=== PATIENT | male | born 1950 | race American Indian/Alaskan Native ===

== ENCOUNTER 2019-01-27 14:01 | Inpatient (IN) | payer MEDICARE, OTHER ==
[2019-01-27 14:24] LABS: Basophils % (Auto) 0.6 % (0.0-1.8); Eosinophils % (Auto) 0.5 % (0.0-4.3); Hematocrit 44.2 % (35.5-45.6); Hemoglobin 15.2 gm/dl (11.8-15.2); Lymphocytes # (Auto) 1.5 K/mm3 (1.2-5.4); Lymphocytes % (Auto) 23.8 % (13.4-35.0); Mean Corpuscular HGB Conc 34 % (32-34); Mean Corpuscular Volume 95 fl (84-94); Monocytes # (Auto) 0.5 K/mm3 (0.0-0.8); Monocytes % (Auto) 8.1 % (0.0-7.3); Platelet Count 252 K/mm3 (140-440); Red Blood Count 4.68 M/mm3 (3.65-5.03); Red Cell Distribution Width 15.8 % (13.2-15.2)
--- NOTE | 2019-01-27 14:27 | Cat Scan Report ---
PROCEDURE: CT HEAD/BRAIN WO CON TECHNIQUE: CT examination of the head without IV contrast HISTORY: neuro deficits <6hrs or sx present upon awakening COMPARISONS: None FINDINGS: Nonunion mid left zygomatic arch may be developmental variation or old trauma. Slight mucosal thickening sphenoid sinuses. Cerebrovascular atherosclerotic calcification is present in the skull base arteries. Small chronic appearing lacunar infarcts in the left thalamus and posterior right internal capsule. No acute air-fluid level visualized in the included air-filled sinuses. Bone windows demonstrate no acute fracture. There is ventricular and sulcal prominence compatible with global cerebrocortical atrophy. The brain contains no mass, mass effect, hemorrhage, or acute infarct. There is no extra-axial intracranial bleed, brain bleed, or midline shift. IMPRESSION: No acute CVA, intracranial bleed, or brain mass Small chronic appearing lacunar infarcts in left thalamus and posterior right internal capsule This document is electronically signed by Kvng Burton MD., January 27 2019 02:25:22 PM ET
[2019-01-27] MEDS ORDERED: ACTIVASE ONE (14:30)
[2019-01-27] MEDS ORDERED: NACL 0.9% IV ONE (14:34)
[2019-01-27] MEDS ORDERED: ACTIVASE IV ONE ×2 (14:34)
[2019-01-27 14:37] LABS: INR 0.97 (0.87-1.13)
[2019-01-27 14:39] LABS: BUN/Creatinine Ratio 12; Blood Urea Nitrogen 11 mg/dL (9-20); Calcium 8.4 mg/dL (8.4-10.2); Hemolysis Index 7
--- NOTE | 2019-01-27 14:59 | Emergency Department Report ---
ED Neuro Deficit HPI - General Chief Complaint: Neuro Symptoms/Deficit Stated Complaint: POSS CVA Time Seen by Provider: 01/27/19 14:28 Source: patient, EMS Mode of arrival: Stretcher Limitations: No Limitations - History of Present Illness Initial Comments: 68-year-old male the past medical history of alcohol abuse presents with complaints of strokelike symptoms that started during a at 1 PM. Patient fell and there was noted to have right-sided weakness, right-sided facial droop, and slurred speech. No pain reported. PMD: Ba - Related Data Allergies/Adverse Reactions: Allergies Allergy/AdvReac Type Severity Reaction Status Date / Time No Known Allergies Allergy Verified 01/27/19 15:17 ED Review of Systems ROS: Stated complaint: POSS CVA Other details as noted in HPI Comment: All other systems reviewed and negative ED Past Medical Hx - Past Medical History Previous Medical History?: No Hx Hypertension: No Hx CVA: No Hx Heart Attack/AMI: No Hx Congestive Heart Failure: No Hx Diabetes: Yes Hx Deep Vein Thrombosis: No Hx Pulmonary Embolism: No Hx GERD: No Hx Liver Disease: No Hx Renal Disease: Yes (Stage 2) Hx of Cancer: No Hx Sickle Cell Disease: No Hx Arthritis: No Hx Headaches / Migraines: No Hx Seizures: No Hx Kidney Stones: No Hx Psychiatric Treatment: No Hx Asthma: No Hx COPD: No Hx Tuberculosis: No Hx Dementia: No Hx HIV: No Additional medical history: hypotension, hypothyroidism - Surgical History Past Surgical History?: No Hx Coronary Stent: No Hx Open Heart Surgery: No Hx Pacemaker: No Hx Internal Defibrillator: No Hx Cholecystectomy: No Hx Appendectomy: No Hx Breast Surgery: No - Social History Smoking Status: Never Smoker Substance Use Type: None ED Neuro Physical Exam - General Limitations: Physical Limitation Suspected Stroke: Yes - NIHSS Assessment Interval: Baseline 1a. Level of Consciousness: alert/keenly responsive 1b. LOC Questions: answers both correctly 1c. LOC Commands: performs tasks correctly 2. Best Gaze: forced deviation 3. Visual: complete hemianopia 4. Facial Palsy: partial paralysis 5b. Motor Arm Right: drift 5a. Motor Arm Left: no drift 6a. Motor Leg Left: no drift 6b. Motor Leg Right: drift 7. Limb Ataxia: absent 8. Sensory: normal 9. Best Language: mild/moderate aphasia 10. Dysarthria: mild/moderate dysarthria 11. Extinction/Inattention: no abnormality Total Score: 10 Stroke Severity: Moderate Stroke - Other Other exam information: General: No limitations, patient is alert in no acute distress Head exam: Atraumatic, normocephalic Eyes exam: Normal appearance, FARIHA ENT: Moist mucous membrane, normal oropharynx Neck exam: Normal inspection, full range of motion, no meningismus nontender Respiratory exam: Clear to auscultation bilateral, no wheezes, rales, crackles Cardiovascular: Normal rate and rhythm, normal heart sounds Abdomen: Soft, nondistended, and nontender, with normal bowel sounds, no rebound, or guarding Extremity: Full range of motion normal inspection no deformity Back: Normal Inspection, full range of motion, no tenderness Neurologic: Alert, see NIHSS Psychiatric: normal affect, normal mood Skin: Warm, dry, intact ED Course Vital Signs 01/27/19 01/27/19 01/27/19 14:40 14:50 14:53 Temperature 97.7 F Pulse Rate 73 71 82 Respiratory 25 H 20 Rate Blood Pressure 122/68 175/85 175/85 Blood Pressure 185/95 175/85 [Left] O2 Sat by Pulse 98 96 Oximetry 01/27/19 01/27/19 01/27/19 15:15 15:23 15:26 Temperature Pulse Rate 76 72 76 Respiratory 18 18 Rate Blood Pressure 182/85 Blood Pressure 183/81 171/86 [Left] O2 Sat by Pulse 97 97 Oximetry 01/27/19 01/27/19 01/27/19 15:40 15:45 16:01 Temperature Pulse Rate 67 66 67 Respiratory 23 22 22 Rate Blood Pressure 181/69 186/83 Blood Pressure [Left] O2 Sat by Pulse 96 92 96 Oximetry 01/27/19 01/27/19 01/27/19 16:15 16:31 16:45 Temperature Pulse Rate 65 67 73 Respiratory 15 13 27 H Rate Blood Pressure 187/79 191/91 181/69 Blood Pressure [Left] O2 Sat by Pulse 96 98 Oximetry 01/27/19 01/27/19 01/27/19 17:00 17:15 17:30 Temperature Pulse Rate 68 67 68 Respiratory 22 11 L 16 Rate Blood Pressure 189/99 171/88 203/100 Blood Pressure [Left] O2 Sat by Pulse 92 90 90 Oximetry 01/27/19 01/27/19 01/27/19 17:45 18:00 18:06 Temperature Pulse Rate 68 65 Respiratory 20 22 20 Rate Blood Pressure 198/92 188/88 Blood Pressure [Left] O2 Sat by Pulse 91 89 98 Oximetry 01/27/19 01/27/19 01/27/19 18:15 18:30 18:45 Temperature Pulse Rate 72 68 70 Respiratory 18 16 22 Rate Blood Pressure 204/110 202/108 205/127 Blood Pressure [Left] O2 Sat by Pulse 92 91 91 Oximetry 01/27/19 01/27/19 19:00 19:15 Temperature Pulse Rate 67 68 Respiratory 22 18 Rate Blood Pressure 211/106 196/80 Blood Pressure [Left] O2 Sat by Pulse 90 95 Oximetry - Reevaluation(s) Reevaluation #1: 01/27/19 16:30 pt able to communicate better after tpa - Consultations Consultation #1: 01/27/19 16:57 Pt was evaluated by tele-neuro upon arrival, + TPA candidate, Not a candidate for intervention based on cta, refer to Dr. Rascon's note 01/27/19 17:07 Case d/w Dr Mckee with [facility] approved admission to this hospital - Lab Data Result diagrams: 01/27/19 14:14 01/27/19 14:14 Lab Results 01/27/19 01/27/19 01/27/19 Range/Units 14:14 14:14 14:14 WBC 6.2 (4.5-11.0) K/mm3 RBC 4.68 (3.65-5.03) M/mm3 Hgb 15.2 (11.8-15.2) gm/dl Hct 44.2 (35.5-45.6) % MCV 95 H (84-94) fl MCH 33 H (28-32) pg MCHC 34 (32-34) % RDW 15.8 H (13.2-15.2) % Plt Count 252 (140-440) K/mm3 Lymph % (Auto) 23.8 (13.4-35.0) % Carson % (Auto) 8.1 H (0.0-7.3) % Eos % (Auto) 0.5 (0.0-4.3) % Baso % (Auto) 0.6 (0.0-1.8) % Lymph # 1.5 (1.2-5.4) K/mm3 Carson # 0.5 (0.0-0.8) K/mm3 Eos # 0.0 (0.0-0.4) K/mm3 Baso # 0.0 (0.0-0.1) K/mm3 Seg Neutrophils % 67.0 (40.0-70.0) % Seg Neutrophils # 4.2 (1.8-7.7) K/mm3 PT 13.5 (12.2-14.9) Sec. INR 0.97 (0.87-1.13) APTT 24.0 L (24.2-36.6) Sec. Thrombin Time (15.1-19.6) Sec. Sodium 143 (137-145) mmol/L Potassium 4.0 (3.6-5.0) mmol/L Chloride 106.4 (98-107) mmol/L Carbon Dioxide 22 (22-30) mmol/L Anion Gap 19 mmol/L BUN 11 (9-20) mg/dL Creatinine 0.9 (0.8-1.5) mg/dL Estimated GFR > 60 ml/min BUN/Creatinine Ratio 12 % Glucose 120 H (75-100) mg/dL Calcium 8.4 (8.4-10.2) mg/dL Magnesium (1.7-2.3) mg/dL Troponin T < 0.010 (0.00-0.029) ng/mL 01/27/19 01/27/19 Range/Units 14:14 14:14 WBC (4.5-11.0) K/mm3 RBC (3.65-5.03) M/mm3 Hgb (11.8-15.2) gm/dl Hct (35.5-45.6) % MCV (84-94) fl MCH (28-32) pg MCHC (32-34) % RDW (13.2-15.2) % Plt Count (140-440) K/mm3 Lymph % (Auto) (13.4-35.0) % Carson % (Auto) (0.0-7.3) % Eos % (Auto) (0.0-4.3) % Baso % (Auto) (0.0-1.8) % Lymph # (1.2-5.4) K/mm3 Carson # (0.0-0.8) K/mm3 Eos # (0.0-0.4) K/mm3 Baso # (0.0-0.1) K/mm3 Seg Neutrophils % (40.0-70.0) % Seg Neutrophils # (1.8-7.7) K/mm3 PT (12.2-14.9) Sec. INR (0.87-1.13) APTT (24.2-36.6) Sec. Thrombin Time 16.4 (15.1-19.6) Sec. Sodium (137-145) mmol/L Potassium (3.6-5.0) mmol/L Chloride (98-107) mmol/L Carbon Dioxide (22-30) mmol/L Anion Gap mmol/L BUN (9-20) mg/dL Creatinine (0.8-1.5) mg/dL Estimated GFR ml/min BUN/Creatinine Ratio % Glucose (75-100) mg/dL Calcium (8.4-10.2) mg/dL Magnesium 2.10 (1.7-2.3) mg/dL Troponin T (0.00-0.029) ng/mL - EKG Data -: EKG Interpreted by Md EKG shows normal: sinus rhythm (78), axis (qrs 9), QRS complexes (qrs 894), ST-T waves (no stemi/t wave inv) - Radiology Data Radiology results: report reviewed PROCEDURE: CT HEAD/BRAIN WO CON TECHNIQUE: CT examination of the head without IV contrast HISTORY: neuro deficits <6hrs or sx present upon awakening COMPARISONS: None FINDINGS: Nonunion mid left zygomatic arch may be developmental variation or old trauma. Slight mucosal thickening sphenoid sinuses. Cerebrovascular atherosclerotic calcification is present in the skull base arteries. Small chronic appearing lacunar infarcts in the left thalamus and posterior right internal capsule. No acute air-fluid level visualized in the included air-filled sinuses. Bone windows demonstrate no acute fracture. There is ventricular and sulcal prominence compatible with global cerebrocortical atrophy. The brain contains no mass, mass effect, hemorrhage, or acute infarct. There is no extra-axial intracranial bleed, brain bleed, or midline shift. IMPRESSION: No acute CVA, intracranial bleed, or brain mass Small chronic appearing lacunar infarcts in left thalamus and posterior right internal capsule PROCEDURE: CT ANGIO HEAD, CT ANGIO NECK TECHNIQUE: Computerized tomographic angiography of the head and neck was performed after the IV injection of iodinated nonionic contrast including image processing. The image data was postprocessed using 2-dimensional multiplanar reformatted (MPR) and 3- dimensional (MIP and/or volume rendered) techniques. Coronal and sagittal reconstructed imaging provided.. The image data was postprocessed using 2- dimensional multiplanar reformatted (MPR) and 3-dimensional (MIP and/or volume rendered) techniques. Coronal and sagittal reconstructed imaging provided. CT DOSE LENGTH PRODUCT: 812.62 mGy-cm. HISTORY: left hemispheric syndrome COMPARISONS: CT head January 27, 2019. FINDINGS: HEAD: Carotid Siphon: Moderate disease with 35-45% narrowing at both cavernous carotids. Vessels are patent with contrast. Anterior Cerebral: Unremarkable. Middle Cerebral: Unremarkable. Posterior Cerebral: Unremarkable. Basilar: Unremarkable. Intracranial Vertebral Arteries: Mild disease on the right. Left is unremarkable. There is no aneurysm, dissection, vascular malformation, or significant vascular stenosis. There is no evidence for vasculitis. NECK: Note: Assessment of carotid artery stenosis is based on measurement of the distal internal carotid artery diameter as the denominator for stenosis calculations and the [place] Symptomatic Carotid Endarterectomy Trial (NASCET) stenosis criteria. RIGHT CAROTID: Origin: Unremarkable. Common: Unremarkable. Bifurcation: Mild to moderate disease. Inter nal: Mild disease. External: Unremarkable. There is no aneurysm, dissection, vascular malformation, or significant vascular stenosis. There is no evidence for vasculitis. LEFT CAROTID: Origin: Unremarkable. Common: Unremarkable. Bifurcation: Mild to moderate disease. Internal: Mild disease. External: Unremarkable. There is no aneurysm, dissection, vascular malformation, or significant vascular stenosis. There is no evidence for vasculitis. EXTRACRANIAL VERTEBRALS: Unremarkable. Equally dominant. There is no aneurysm, dissection, vascular malformation, or significant vascular stenosis. There is no evidence for vasculitis. OTHER: Partially imaged thoracic aorta does not demonstrate any aneurysm or dissection. Major branch arteries are are patent. Mild to moderate aortic atherosclerotic disease. Mild disease at the origin of the major aortic branches. IMPRESSION: * 35-40% narrowing of both cavernous carotids. * Otherwise unremarkable CTA of the head and neck - Medical Decision Making + acute cva received tpa ba pt with approval to admit here neuro sx improveing - Differential Diagnosis ischemic stroke, intracerebral hemorrhage, encephalopathy - Thrombolytic Inclusion/Exclusion Thrombolytic Inclusion Criteria: Ischemic Stroke Onset< 3h, NIH Stroke Scale D eficit, Negative CT Scan for ICH, Age 18 or Older, Glucose of 50-400mg/dl Critical Care Time: Yes Critical care time in (mins) excluding proc time.: 35 Critical care attestation.: If time is entered above; I have spent that time in minutes in the direct care of this critically ill patient, excluding procedure time. ED Disposition Clinical Impression: Alcohol abuse, daily use Stroke (cerebrum) Qualifiers: Precerebral and cerebral artery: middle cerebral artery Laterality of affected vessel: left HTN (hypertension) Qualifiers: Hypertension type: essential hypertension Qualified Code(s): I10 - Essential (primary) hypertension Disposition: DC09 OP ADMIT IP TO THIS HOSP Is pt being admited?: Yes Condition: Stable Time of Disposition: 17:09 (DR Brown /hosp)
--- NOTE | 2019-01-27 14:59 | Emergency Department Report ---
ED Neuro Deficit HPI - General Chief Complaint: Neuro Symptoms/Deficit Stated Complaint: POSS CVA Time Seen by Provider: 01/27/19 14:28 Source: patient, EMS Mode of arrival: Stretcher Limitations: No Limitations - History of Present Illness Initial Comments: [facility] Tele[facility]urology Consult Services Impression: Stroke. Left hemispheric Advanced imaging ordered to r/o lvo Differential Diagnosis: 1. Cardioembolic stroke 2. Small vessel disease/lacune 3. Thromboembolic, pwteop-so-wkikqy mechanism 4. Hypercoagulable state-related infarct 5. Transient ischemic attack 6. Thrombotic mechanism, large artery disease Comments: Door time: 1402 [employer] contacted: [phone] [employer] at bedside: 1402 Verbal tpa order: 1429; however, had to wait for labs given patient drinks etoh every day Needle time: 1449 (delay from waiting for labs) Verbal Consent to tPA: I discussed the contraindications with the patient/family. The patient denies any history of severe head trauma within the last 3 months, prior intracranial hemorrhage, structural gastrointestinal malignancy, intra- axial neoplasm, unsecured aneurysm greater than 10mm, intracranial or intraspinal surgery within the past 3 months, recent gastrointestinal or urinary tract hemorrhage within the previous 21 days, symptoms suggestive of subarachnoid hemorrhage, infective endocarditis, active internal bleeding with the exception of certain types of vaginal bleeding, or known or suspected aortic arch dissection. The patient does not have an INR greater than 1.7, PT greater than 15 seconds, or a pTT greater than 40 seconds, or platelet count less than 100,[address] does not show extensive regions hypodensity (multilobar infarct) and there is no evidence of acute hemorrhage. The patient is not currently on IV antiplatelet agents, therapeutic dose ofLMWH, or has used a direct thrombin inhibitor or direct factor Xa inhibitor. I have explained to the patient/family/guardian the nature of the patients condition, the use of tPA fibrinolytic agent, and the benefits to be reasonably expected compared with alternative approaches. I have discussed the likelihood of major risks or complications of this procedure including (if applicable) but not limited to loss of limb function, brain damage, paralysis, hemorrhage, infection, complications from transfusion of blood components, drug reactions, blood clots and loss of life. I have also indicated that with any procedure there is always the possibility of an unexpected complication. I have explained the risks which include: 1. , Stroke or permanent neurologic injury (paralysis, coma, etc) 2. Worsening of stroke symptoms from swelling or bleeding in the brain 3. Bleeding in other parts of the body 4. Need for blood transfusions to replace blood or clotting factors 5. Allergic reaction to medications 6. Other unexpected complications All questions were answered and the patient/family/guardian express understanding of the treatment plan and consent to the procedure. Our recommendations are outlined below. We will be seeing the patient back in follow up as noted. Recommendations: IV tPA dose = 90mg; 111.3kg Routine post tPA monitoring including neuro checks and blood pressure control during/after treatment Monitor blood pressure Check blood pressure and NIHSS every 15 min for 2 h, then every 30 min for 6 h, and finally every hour for 16 h Systolic greater than 180 OR diastolic greater than 105: Option 1: Labetalol 10 mg IV for 1 - 2 min May repeat or double labetalol every 10 min to maximum dose of 300 mg, or give initial labetalol dose, then start labetalol drip at 2 - 8 mg/min. Option 2: Nicardipine 5 mg/h IV infusion as initial dose and titrate to desired effect by increasing 2.5 mg/h every 5 min to maximum of 15 mg/h; If blood pressure is not controlled by labetolol or nicardipine, consider sodium nitroprusside. Cta head and neck ordered. If no lvo, okay to admit to icu with below recommendations Admission to ICU CT brain 24 hours post tPA NPO until swallowing screen performed and passed No antiplatelet agents or anticoagulants (including heparin for DVT prophylaxis) in first 24 hours No Adams catheter, nasogastric tube, arterial catheter or central venous catheter for 24 hr, unless absolutely necessary Telemetry Inpatient Neurology Consultation Stroke evaluation as per inpatient neurology recommendations Discussed with ED MD CC right sided weakness History of Present Illness Patient is a 68 year old man who was brought to the hospital for right sided weakness and difficulty falling. Onset of symptoms at 1300, family witnessed this at a , he had problems walking. Then they noticed he could not speak well. No anticoagulants, drinks high volumes of etoh daily, does not go to the md Medical Decision Making: - Extensive number of diagnosis or management options are considered above. - Extensive amount of complex data reviewed. - High risk of complication and/or morbidity or mortality are associated with differential diagnostic considerations above. - There may be Uncertain outcome and increased probability of prolonged functional impairment or high probability of severe prolonged functional impairment associated with some of these differential diagnosis. Medical Data Reviewed: 1.Data reviewed include clinical labs, radiology, Medical Tests; 2.Tests results discussed w/performing or interpreting physician; 3.Obtaining/reviewing old medical records; 4.Obtaining case history from another source; 5.Independent review of image, tracing or specimen. Patient/family was informed the Neurology Consult would happen via telehealth ( remote video) and consented to receiving care in this manner. - Related Data Allergies/Adverse Reactions: Allergies Allergy/AdvReac Type Severity Reaction Status Date / Time Penicillins Allergy Angioedema Verified 01/27/19 14:42 vancomycin Allergy Itching Verified 01/27/19 14:42 vortioxetine Allergy Unknown Verified 01/27/19 14:42 [From Trintellix] ziprasidone [From Geodon] Allergy Angioedema Verified 01/27/19 14:42 ED Review of Systems ROS: Stated complaint: POSS CVA Other details as noted in HPI ED Past Medical Hx - Past Medical History Previous Medical History?: No Hx Hypertension: No Hx CVA: No Hx Heart Attack/AMI: No Hx Congestive Heart Failure: No Hx Diabetes: Yes Hx Deep Vein Thrombosis: No Hx Pulmonary Embolism: No Hx GERD: No Hx Liver Disease: No Hx Renal Disease: Yes (Stage 2) Hx of Cancer: No Hx Sickle Cell Disease: No Hx Arthritis: No Hx Headaches / Migraines: No Hx Seizures: No Hx Kidney Stones: No Hx Psychiatric Treatment: No Hx Asthma: No Hx COPD: No Hx Tuberculosis: No Hx Dementia: No Hx HIV: No Additional medical history: hypotension, hypothyroidism - Surgical History Past Surgical History?: No Hx Coronary Stent: No Hx Open Heart Surgery: No Hx Pacemaker: No Hx Internal Defibrillator: No Hx Cholecystectomy: No Hx Appendectomy: No Hx Breast Surgery: No - Social History Smoking Status: Never Smoker Substance Use Type: None ED Neuro Physical Exam - General Limitations: No Limitations Suspected Stroke: Yes - NIHSS Assessment Interval: Baseline 1a. Level of Consciousness: alert/keenly responsive 1b. LOC Questions: answers both correctly 1c. LOC Commands: performs tasks correctly 2. Best Gaze: forced deviation 3. Visual: complete hemianopia 4. Facial Palsy: partial paralysis 5b. Motor Arm Right: drift 5a. Motor Arm Left: no drift 6a. Motor Leg Left: no drift 6b. Motor Leg Right: drift 7. Limb Ataxia: absent 8. Sensory: normal 9. Best Language: mild/moderate aphasia 10. Dysarthria: mild/moderate dysarthria 11. Extinction/Inattention: no abnormality Total Score: 10 Stroke Severity: Moderate Stroke ED Course Vital Signs 01/27/19 01/27/19 14:40 14:42 Temperature 97.7 F 98.3 F Pulse Rate 76 93 H Respiratory 25 H 16 Rate Blood Pressure 122/68 97/64 Blood Pressure 122/68 [Left] O2 Sat by Pulse 98 97 Oximetry - Lab Data Result diagrams: 01/27/19 14:14 01/27/19 14:14 Lab Results 01/27/19 01/27/19 01/27/19 Range/Units 14:14 14:14 14:14 WBC 6.2 (4.5-11.0) K/mm3 RBC 4.68 (3.65-5.03) M/mm3 Hgb 15.2 (11.8-15.2) gm/dl Hct 44.2 (35.5-45.6) % MCV 95 H (84-94) fl MCH 33 H (28-32) pg MCHC 34 (32-34) % RDW 15.8 H (13.2-15.2) % Plt Count 252 (140-440) K/mm3 Lymph % (Auto) 23.8 (13.4-35.0) % Rich % (Auto) 8.1 H (0.0-7.3) % Eos % (Auto) 0.5 (0.0-4.3) % Baso % (Auto) 0.6 (0.0-1.8) % Lymph # 1.5 (1.2-5.4) K/mm3 Rich # 0.5 (0.0-0.8) K/mm3 Eos # 0.0 (0.0-0.4) K/mm3 Baso # 0.0 (0.0-0.1) K/mm3 Seg Neutrophils % 67.0 (40.0-70.0) % Seg Neutrophils # 4.2 (1.8-7.7) K/mm3 PT 13.5 (12.2-14.9) Sec. INR 0.97 (0.87-1.13) APTT 24.0 L (24.2-36.6) Sec. Thrombin Time (15.1-19.6) Sec. Sodium 143 (137-145) mmol/L Potassium 4.0 (3.6-5.0) mmol/L Chloride 106.4 (98-107) mmol/L Carbon Dioxide 22 (22-30) mmol/L Anion Gap 19 mmol/L BUN 11 (9-20) mg/dL Creatinine 0.9 (0.8-1.5) mg/dL Estimated GFR > 60 ml/min BUN/Creatinine Ratio 12 % Glucose 120 H (75-100) mg/dL Calcium 8.4 (8.4-10.2) mg/dL Troponin T < 0.010 (0.00-0.029) ng/mL 01/27/19 Range/Units 14:14 WBC (4.5-11.0) K/mm3 RBC (3.65-5.03) M/mm3 Hgb (11.8-15.2) gm/dl Hct (35.5-45.6) % MCV (84-94) fl MCH (28-32) pg MCHC (32-34) % RDW (13.2-15.2) % Plt Count (140-440) K/mm3 Lymph % (Auto) (13.4-35.0) % Rich % (Auto) (0.0-7.3) % Eos % (Auto) (0.0-4.3) % Baso % (Auto) (0.0-1.8) % Lymph # (1.2-5.4) K/mm3 Rich # (0.0-0.8) K/mm3 Eos # (0.0-0.4) K/mm3 Baso # (0.0-0.1) K/mm3 Seg Neutrophils % (40.0-70.0) % Seg Neutrophils # (1.8-7.7) K/mm3 PT (12.2-14.9) Sec. INR (0.87-1.13) APTT (24.2-36.6) Sec. Thrombin Time 16.4 (15.1-19.6) Sec. Sodium (137-145) mmol/L Potassium (3.6-5.0) mmol/L Chloride (98-107) mmol/L Carbon Dioxide (22-30) mmol/L Anion Gap mmol/L BUN (9-20) mg/dL Creatinine (0.8-1.5) mg/dL Estimated GFR ml/min BUN/Creatinine Ratio % Glucose (75-100) mg/dL Calcium (8.4-10.2) mg/dL Troponin T (0.00-0.029) ng/mL Critical care attestation.: If time is entered above; I have spent that time in minutes in the direct care of this critically ill patient, excluding procedure time. ED Disposition Clinical Impression: Stroke (cerebrum) Disposition: 09 OP ADMIT IP TO THIS HOSP Is pt being admited?: Yes Condition: Stable Referrals: PRIMARY CARE, [Primary Care Provider] - 3-5 Days
[2019-01-27] MEDS ORDERED: NORMODYNE IV ONE (15:20)
--- NOTE | 2019-01-27 16:07 | Cat Scan Report ---
PROCEDURE: CT ANGIO HEAD, CT ANGIO NECK TECHNIQUE: Computerized tomographic angiography of the head and neck was performed after the IV inje ction of iodinated nonionic contrast including image processing. The image data was postprocessed usi ng 2-dimensional multiplanar reformatted (MPR) and 3-dimensional (MIP and/or volume rendered) [facility] ues. Coronal and sagittal reconstructed imaging provided.. The image data was postprocessed using 2-d imensional multiplanar reformatted (MPR) and 3-dimensional (MIP and/or volume rendered) techniques. C oronal and sagittal reconstructed imaging provided. CT DOSE LENGTH PRODUCT: 812.62 mGy-cm. HISTORY: left hemispheric syndrome COMPARISONS: CT head January 27, 2019. FINDINGS: HEAD: Carotid Siphon: Moderate disease with 35-45% narrowing at both cavernous carotids. Vessels are patent with contrast. Anterior Cerebral: Unremarkable. Middle Cerebral: Unremarkable. Posterior Cerebral: Unremarkable. Basilar: Unremarkable. Intracranial Vertebral Arteries: Mild disease on the right. Left is unremarkable. There is no aneurysm, dissection, vascular malformation, or significant vascular stenosis. There is n o evidence for vasculitis. NECK: Note: Assessment of carotid artery stenosis is based on measurement of the distal internal carotid a rtery diameter as the denominator for stenosis calculations and the [place] Symptomatic Caroti d Endarterectomy Trial (NASCET) stenosis criteria. RIGHT CAROTID: Origin: Unremarkable. Common: Unremarkable. Bifurcation: Mild to moderate disease. Internal: Mild disease. External: Unremarkable. There is no aneurysm, dissection, vascular malformation, or significant vascular stenosis. There is n o evidence for vasculitis. LEFT CAROTID: Origin: Unremarkable. Common: Unremarkable. Bifurcation: Mild to moderate disease. Internal: Mild disease. External: Unremarkable. There is no aneurysm, dissection, vascular malformation, or significant vascular stenosis. There is n o evidence for vasculitis. EXTRACRANIAL VERTEBRALS: Unremarkable. Equally dominant. There is no aneurysm, dissection, vascular malformation, or significant vascular stenosis. There is n o evidence for vasculitis. OTHER: Partially imaged thoracic aorta does not demonstrate any aneurysm or dissection. Major branch arterie s are are patent. Mild to moderate aortic atherosclerotic disease. Mild disease at the origin of the major aortic branches. IMPRESSION: * 35-40% narrowing of both cavernous carotids. * Otherwise unremarkable CTA of the head and neck. This document is electronically signed by Lavell Whitlock MD., January 27 2019 04:05:46 PM ET
[2019-01-27] MEDS ORDERED: SODIUM CHLORIDE FLUSH SYRINGE 10 ML IV PRN (17:08)
[2019-01-27] MEDS ORDERED: ZOFRAN IV PRN (17:08)
[2019-01-27] MEDS ORDERED: TYLENOL PO PRN (17:08)
[2019-01-27] MEDS ORDERED: PROVENTIL IH PRN (17:08)
[2019-01-27] MEDS ORDERED: MILK OF MAGNESIA PO PRN (17:08)
[2019-01-27] MEDS ORDERED: PHENERGAN PR PRN (17:08)
[2019-01-27] MEDS ORDERED: DULCOLAX PR PRN (17:08)
[2019-01-27] MEDS ORDERED: REGLAN PO PRN (17:08)
--- NOTE | 2019-01-27 17:08 | History and Physical Report ---
History of Present Illness Chief complaint: I felt weak History of present illness: 68 YO Male with Obesity, Hypothyroidism, DM, ETOH Dependence presents to ED for evaluation. Pt states that he was in his usual state of health until 1300hrs. Pt states that he experienced sudden onset right arm and leg weakness, as well as right sided facial droop, and slurred speech. EMS notified and upon arrival the patient was found to have neurologic deficit. A code stroke was called and the patient transported to [facility]. Pt seen and evaluated in ED and found to have symptoms consistent with CVA. Pt admitted to telemetry, and initiated on CVA protocol. Teleneurology consulted. Pt found to be within therapeutic window. Pt treated with TPA. Pt admitted to ICU and initiated on CVA protocol. Pt also initiated on ETOH withdrawl protocol. Neurology consulted in ED. Pt denies fever, chills, CP, Palpitations, NVD, Trauma, BRBPR, Unintentional weight loss, night sweats, or bone pain. Past History Past Medical History: diabetes, hypothyroidism, other (obesity\) Past Surgical History: No surgical history, Other (reviewed) Social history: , lives with family. denies: smoking, alcohol abuse, IV drug use Family history: diabetes, hypertension Medications and Allergies Allergies Allergy/AdvReac Type Severity Reaction Status Date / Time No Known Allergies Allergy Verified 01/27/19 15:17 Review of Systems Constitutional: no weight loss, no weight gain, no fever, no chills Ears, nose, mouth and throat: no ear pain, no ear discharge, no tinnitis, no decreased hearing, no nose pain, no nasal congestion Cardiovascular: no chest pain, no orthopnea, no palpitations, no rapid/irregular heart beat, no edema, no syncope Respiratory: no cough, no cough with sputum, no excessive sputum, no hemoptysis, no shortness of breath Gastrointestinal: no nausea, no vomiting, no diarrhea, no constipation Genitourinary Male: no dysuria, no hematuria, no flank pain, no discharge, no urinary frequency, no urinary hesitancy Rectal: no pain, no incontinence, no bleeding Musculoskeletal: no neck stiffness, no neck pain, no shooting arm pain, no arm numbness/tingling, no low back pain Integumentary: no rash, no pruritis, no redness, no sores, no wounds Neurological: paralysis, weakness, numbness, lack of coordination, change in speech, change in mentation, balance difficulties, gait dysfunction, motor disturbance, no head injury, no transient paralysis, no parathesias Psychiatric: no anxiety, no memory loss, no change in sleep habits, no sleep disturbances, no insomnia, no change in appetite Endocrine: no cold intolerance, no heat intolerance, no polyphagia, no excessive thirst, no polydipsia, no polyuria, no nocturia Hematologic/Lymphatic: no easy bruising, no easy bleeding, no lymphadenopathy, no lymphedema Allergic/Immunologic: no urticaria, no allergic rhinitis, no wheezing, no angioe lilly Exam - Constitutional Vitals: Temp Pulse Resp BP Pulse Ox 97.7 F 66 22 181/69 92 01/27/19 14:40 01/27/19 15:45 01/27/19 15:45 01/27/19 15:45 01/27/19 15:45 General appearance: Present: mild distress - EENT Eyes: Present: PERRL ENT: hearing intact, clear oral mucosa - Neck Neck: Present: supple, normal ROM - Respiratory Respiratory effort: normal Respiratory: bilateral: CTA - Cardiovascular Heart Sounds: Present: S1 & S2. Absent: rub, click - Extremities Extremities: pulses symmetrical, No edema Peripheral Pulses: within normal limits - Abdominal General gastrointestinal: Present: soft, non-tender, non-distended, normal bowel sounds Male genitourinary: Present: normal - Integumentary Integumentary: Present: clear, warm, dry - Musculoskeletal Musculoskeletal: gait normal, strength equal bilaterally - Psychiatric Psychiatric: appropriate mood/affect, intact judgment & insight - Neurologic Neurologic: CNII-XII intact, moves all extremities Results - Labs CBC & Chem 7: 01/27/19 14:14 01/27/19 14:14 Labs: Abnormal lab results 01/27/19 01/27/19 01/27/19 Range/Units 14:14 14:14 14:14 MCV 95 H (84-94) fl MCH 33 H (28-32) pg RDW 15.8 H (13.2-15.2) % [place] % (Auto) 8.1 H (0.0-7.3) % APTT 24.0 L (24.2-36.6) Sec. Glucose 120 H (75-100) mg/dL Assessment and Plan - Patient Problems (1) CVA (cerebral vascular accident) Current Visit: Yes Status: Acute Qualifiers: Precerebral and cerebral artery: middle cerebral artery Laterality of affected vessel: left Plan to address problem: Stroke Protocol: Admit to ICU, TPA administered in ED, CT head, MRI Brain, MRA Brain, Echo, Carotid Doppler, Antiplatelet therapy 24 hours after TPA, Lipid Panel, PT/OT/Speech Therapy, statin therapy, (2) Right hemiparesis Current Visit: Yes Status: Acute Plan to address problem: PT consulted, (3) Alcohol abuse, daily use Current Visit: Yes Status: Acute Plan to address problem: CIWA protocol, Banana bag, Thiamine, folic acid, multivitamin daily, (4) HTN (hypertension) Current Visit: Yes Status: Acute Qualifiers: Hypertension type: essential hypertension Qualified Code(s): I10 - Essential (primary) hypertension Plan to address problem: Permissive hypertension overnight, monitor BP q shift, (5) Diabetes Current Visit: Yes Status: Acute Plan to address problem: ADA diet, insulin, accu check (6) Obesity Current Visit: Yes Status: Acute Qualifiers: Body mass index: BMI 39.0-39.9 Plan to address problem: balanced diet, increased physical activity at discharge (7) DVT prophylaxis Current Visit: Yes Status: Acute Plan to address problem: SCD to BLE while in bed,
[2019-01-27] MEDS ORDERED: VITAMIN B-1 100 MG, FOLVITE 1 MG, INFUVITE 10 ML in NACL 0.9% 1000 ML 1,000 ML IV ONE (17:12)
[2019-01-27] MEDS ORDERED: ATIVAN IV PRN (17:19)
[2019-01-27] MEDS ORDERED: THERAGRAN Tab PO ONE ×2 (17:43→19:04)
[2019-01-27] MEDS ORDERED: D50W (25GM) Syringe IV PRN (17:53)
[2019-01-27] MEDS ORDERED: APRESOLINE IV PRN (17:56)
[2019-01-27] MEDS ORDERED: FOLVITE 1 MG, INFUVITE 10 ML in NACL 0.9% 1000 ML 1,000 ML IV ONE (18:00)
[2019-01-27] MEDS ORDERED: APRESOLINE ONE (19:04)
--- NOTE | 2019-01-27 19:14 | Progress Note ---
Subjective Date of service: 01/27/19 Interval history: reviewed all the prior notes patient is minimally responsive seenurses notes susopect stroke carotid us not back Objective - Vital Sign Vital Signs - 12hr 01/27/19 01/27/19 01/27/19 14:40 14:50 14:53 Temperature 97.7 F Pulse Rate 73 71 82 Respiratory 25 H 20 Rate Blood Pressure 122/68 175/85 175/85 Blood Pressure 185/95 175/85 [Left] O2 Sat by Pulse 98 96 Oximetry 01/27/19 01/27/19 01/27/19 15:15 15:23 15:26 Temperature Pulse Rate 76 72 76 Respiratory 18 18 Rate Blood Pressure 182/85 Blood Pressure 183/81 171/86 [Left] O2 Sat by Pulse 97 97 Oximetry 01/27/19 01/27/19 01/27/19 15:40 15:45 18:06 Temperature Pulse Rate 67 66 Respiratory 23 22 20 Rate Blood Pressure 181/69 Blood Pressure [Left] O2 Sat by Pulse 96 92 98 Oximetry - Laboratory Findings CBC and BMP: 01/27/19 14:14 01/27/19 14:14 Abnormal Lab Findings: Abnormal Labs 01/27/19 01/27/19 01/27/19 14:14 14:14 14:14 MCV 95 H MCH 33 H RDW 15.8 H [place] % (Auto) 8.1 H APTT 24.0 L Glucose 120 H
--- NOTE | 2019-01-27 20:26 | Vascular Lab Report ---
PROCEDURE: VL CAROTID DUPLEX BILAT HISTORY: stroke FINDINGS: Real-time ultrasound of the cervical arterial vasculature was performed using grayscale and color Dop pler images. These images demonstrate that peak systolic velocity in the right common carotid artery was 103 cm/s. In the internal carotid it was 55 cm/s and in the external carotid 142 cm/s. Flow in the vertebral a rtery was antegrade at 64 cm/s. The ratio of flow of the internal carotid to the common carotid was 0 .53 which is normal. There is mild plaque in the common carotid artery, carotid bulb and proximal int ernal carotid artery without significant stenosis. On the left, peak systolic velocity in the common carotid artery was 66 cm/s. In the internal carotid it was 64 cm/s and in the external carotid 10 8 cm/s. Flow in the vertebral artery was antegrade at 51 cm/s.There is mild plaque in the common carotid artery carotid bulb and proximal internal carotid artery without significant stenosis. IMPRESSION: No stenosis of greater than 50% is seen in the cervical arterial vasculature. This document is electronically signed by Hira Andujar MD., January 27 2019 08:23:52 PM ET
[2019-01-27] MEDS: APRESOLINE IV SCH (22:33)
[2019-01-27] MEDS: HumaLOG SUB-Q SCH (22:48)
[2019-01-28] MEDS: APRESOLINE IV SCH ×5 (03:01→16:09)
[2019-01-28] MEDS: HumaLOG SUB-Q SCH ×3 (07:30→16:25)
[2019-01-28] MEDS: VITAMIN B-1 PO SCH (10:00)
[2019-01-28] MEDS: FOLVITE PO SCH (10:00)
[2019-01-28] MEDS: ASPIRIN PO SCH (10:21)
--- NOTE | 2019-01-28 12:40 | Consultation ---
History of Present Illness Consult date: 01/28/19 Requesting physician: REJI SALVADOR Reason for consult: other (CVA s/p Thrombolytic therapy) History of present illness: 68-year-old male the past medical history of alcohol abuse presents with complaints of strokelike symptoms that started during a at 1 PM. Patient fell and there was noted to have right-sided weakness, right-sided facial droop, and slurred speech. He states that he experienced sudden onset right arm and leg weakness, as well as right sided facial droop, and slurred speech. EMS notified and upon arrival the patient was found to have neurologic deficit. Patient transported to [facility]. Patient was seen and evaluated in ED and found to have symptoms consistent with CVA. Teleneurology consulted, he found to be within therapeutic window and TPA was administered. I have been consulted for critical care management. Patient was seen and examined. Vitals, labs, medications, chart and imaging reviewed. He still has some garbled speech and residual right arm weakness. He denies any headaches, no bleeding from any orifice He also denies fever, chills, CP, Palpitations, NVD, Unintentional weight loss, night sweats, or bone pain. Past History Past Medical History: diabetes, hypothyroidism, other (obesity\) Past Surgical History: No surgical history, Other (reviewed) Social history: , lives with family. denies: smoking, alcohol abuse, IV drug use Family history: diabetes, hypertension Medications and Allergies Allergies Allergy/AdvReac Type Severity Reaction Status Date / Time No Known Allergies Allergy Verified 01/27/19 15:17 Home Medications Medication Instructions Recorded Confirmed Last Taken Type Aspirin EC [Aspirin Enteric Coated 81 mg PO QDAY #30 tablet. 01/31/19 Unknown Rx TAB] AtorvaSTATin [Lipitor] 40 mg PO QHS #30 tablet 01/31/19 Unknown Rx Clopidogrel [Plavix] 75 mg PO QDAY #30 tablet 01/31/19 Unknown Rx Folic Acid [Folvite] 1 mg PO QDAY #30 tablet 01/31/19 Unknown Rx Thiamine [Vitamin B-1] 100 mg PO QDAY #30 tablet 01/31/19 Unknown Rx amLODIPine [Norvasc] 5 mg PO QDAY #30 tablet 01/31/19 Unknown Rx hydrALAZINE [Apresoline TAB] 25 mg PO Q8HR #90 tablet 01/31/19 Unknown Rx Active Meds: Active Medications Acetaminophen (Tylenol) 650 mg PO Q4H PRN PRN Reason: Pain, Mild (1-3) Albuterol (Proventil) 2.5 mg IH Q3H PRN PRN Reason: Shortness Of Breath Aspirin (Aspirin) 325 mg PO QDAY [facility] Last Admin: 01/28/19 10:21 Dose: Not Given Documented by: Atorvastatin Calcium (Lipitor) 40 mg PO QHS [facility] Last Admin: 01/27/19 22:32 Dose: 40 mg Documented by: Bisacodyl (Dulcolax) 10 mg HI QDAY PRN PRN Reason: Constipation Dextrose (D50w (25gm) Syringe) 50 ml IV PRN PRN PRN Reason: Hypoglycemia Folic Acid (Folvite) 1 mg PO QDAY [facility] Last Admin: 01/28/19 10:00 Dose: 1 mg Documented by: Hydralazine HCl (Apresoline) 20 mg IV Q4H [facility] Last Admin: 01/28/19 12:00 Dose: 20 mg Documented by: Insulin Human Lispro (Humalog) 0 unit SUB-Q [facility]; Protocol Last Admin: 01/28/19 07:30 Dose: Not Given Documented by: Lorazepam (Ativan) 2 mg IV Q1H PRN PRN Reason: CIWA-Ar 8-15 Last Admin: 01/27/19 23:46 Dose: 2 mg Documented by: Magnesium Hydroxide (Milk Of Magnesia) 30 ml PO Q4H PRN PRN Reason: Constipation Metoclopramide HCl (Reglan) 10 mg PO Q6H PRN PRN Reason: Nausea And Vomiting Ondansetron HCl (Zofran) 4 mg IV Q8H PRN PRN Reason: Nausea And Vomiting Promethazine HCl (Phenergan) 25 mg HI Q6H PRN PRN Reason: Nausea And Vomiting Sodium Chloride (Sodium Chloride Flush Syringe 10 Ml) 10 ml IV PRN PRN PRN Reason: LINE FLUSH Thiamine HCl (Vitamin B-1) 100 mg PO QDAY [facility] Last Admin: 01/28/19 10:00 Dose: 100 mg Documented by: Review of Systems Constitutional: no weight loss, no weight gain, no fever, no chills, no night sweats Ears, nose, mouth and throat: no epistaxis, no headache Cardiovascular: no chest pain, no palpitations, no rapid/irregular heart beat, no lightheadedness Respiratory: no cough, no hemoptysis, no wheezing Gastrointestinal: no abdominal pain, no nausea, no vomiting, no BRBPR, no melena, no hematochezia Physical Examination Vital signs: Vital Signs Temp Pulse Resp BP Pulse Ox 97.7 F 76 25 H 185/95 98 01/27/19 14:40 01/27/19 14:40 01/27/19 14:40 01/27/19 14:40 01/27/19 14:40 General appearance: no acute distress, alert Eyes: non-icteric ENT: oropharynx moist Neck: supple, no lymphadenopathy, no JVD Effort: normal Ascultation: Bilateral: clear, diminished breath sounds (at the bases) Cardiovascular: regular rate and rhythm, other (S1,S2, no murmurs, gallops or rubs) Gastrointestinal: normoactive bowel sounds, soft, non-tender, non-distended Extremities: no cyanosis, no edema, pulses normal Musculoskeletal: no deformities normal mental status, pupils equal and round, other (power grade 3/5 right upper extremity, dysarthria) mood appropriate, affect normal Results - Laboratory Findings CBC and BMP: 01/29/19 05:21 01/29/19 05:21 PT/INR, D-dimer PT 13.5 Sec. (12.2-14.9) 01/27/19 14:14 INR 0.97 (0.87-1.13) 01/27/19 14:14 Abnormal lab findings: Abnormal Labs 01/27/19 01/27/19 01/27/19 14:14 14:14 14:14 MCV 95 H MCH 33 H RDW 15.8 H [place] % (Auto) 8.1 H APTT 24.0 L Glucose 120 H Assessment and Plan Acute CVA s/p TPA administration Right hemiparesis h/o Alcohol use disorder HTN Obesity BMI 33.9 Stroke Protocol: Admit to ICU, TPA administered in ED, CT head, Neurochecks q2 hour Secondary stroke prophylaxis MRI Brain, MRA Brain, Echo, Carotid Doppler, Antiplatelet therapy 24 hours after TPA, Lipid Panel, PT/OT/Speech Therapy, statin therapy Keep NPO until swallow function is evaluated Aspiration precautions Alcohol withdrawal protocol Weight loss and life style modifications SCD for VTE prophylaxis for the first 24 hours If no new neurological deficits, or any neuroimaging suggestive of hemorrhagic conversion, can transfer to telemetry post 24 hours of TPA administration. Care plan discussed with the patient, updated him Discussed with RN CONDITION: CRITICAL PROGNOSIS: GUARDED CODE STATUS: FULL CODE The high probability of a clinically significant, sudden or life-threatening deterioration of the [ neurology] system(s) required my full and direct attention, intervention and personal management. The aggregate critical care time was [45] minutes without overlap. Time includes spent on; [x] Data Review and interpretation [x] Patient assessment and monitoring of vital signs [x] Documentation [x] Medication orders and management ,
--- NOTE | 2019-01-28 15:15 | Progress Note ---
Assessment and Plan Assessment and plan: -- CVA (cerebral vascular accident)s/p TPA Stroke/TPA Protocol Patient feels slightly better, neuro workup is in progress Physical therapy occupational therapy speech therapy, diet as tolerated Aspirin[24 hours after TPA] Plavix -- Right hemiparesis Mild improvement ,PT and OT -- Alcohol abuse, daily use Monitor for alcohol withdrawal symptoms Initiate CIWA protocol, Banana bag, Thiamine, folic acid, multivitamin daily, Advised to quit alcohol intake -- HTN (hypertension) Continue current antihypertensives , Permissive hypertension overnight, when necessary medications -- Obesity; BMI 33.9 Advised diet modification, exercise as tolerated Weight reduction when medically stable -- DVT prophylaxis SCD to BLE while in bed, Lovenox after 24 hours of TPA The patient will be transferred to telemetry after 24 hours of TPA if stable Plan of care is reviewed with the patient's nurse and the patient Critical care time 35 minutes The high probability of a clinically significant, sudden or life threatening deterioration of the system(s) required my full and direct attention,intervention and personal management. The aggregate critical care time was [35] minutes. This time is in addition to time spent performing reported procedures but includes the following: [x] Data Review and interpretation [x] Patient assessment and monitoring of vital signs [x] Documentation [x] Medication orders and management History Interval history: Patient seen and examined this afternoon in ICU Medical records reviewed Patient was admitted with acute CVA status post TPA On TPA protocol Patient feels better weakness slightly improved Alert awake oriented 3 Vital signs noted Blood pressure is uncontrolled Hospitalist Physical - Constitutional Vitals: Temp Pulse Resp BP Pulse Ox 98.2 F 88 25 H 169/82 98 01/28/19 12:00 01/28/19 15:00 01/28/19 15:00 01/28/19 15:00 01/28/19 15:00 General appearance: Present: no acute distress, well-nourished, obese - EENT Eyes: Present: PERRL, EOM intact - Neck Neck: Present: supple, normal ROM - Respiratory Respiratory effort: normal Respiratory: bilateral: diminished, negative: rales, rhonchi, wheezing - Cardiovascular Rhythm: regular Heart Sounds: Present: S1 & S2 - Extremities Extremities: no ischemia, No edema - Abdominal General gastrointestinal: soft, non-tender, non-distended, normal bowel sounds - Integumentary Integumentary: Present: clear, warm - Psychiatric Psychiatric: appropriate mood/affect, cooperative - Neurologic Neurologic: other (mild right-sided weakness, slow speech) Results - Labs CBC & Chem 7: 01/27/19 14:14 01/27/19 14:14 Labs: Laboratory Last Values WBC 6.2 K/mm3 (4.5-11.0) 01/27/19 14:14 RBC 4.68 M/mm3 (3.65-5.03) 01/27/19 14:14 Hgb 15.2 gm/dl (11.8-15.2) 01/27/19 14:14 Hct 44.2 % (35.5-45.6) 01/27/19 14:14 MCV 95 fl (84-94) H 01/27/19 14:14 MCH 33 pg (28-32) H 01/27/19 14:14 MCHC 34 % (32-34) 01/27/19 14:14 RDW 15.8 % (13.2-15.2) H 01/27/19 14:14 Plt Count 252 K/mm3 (140-440) 01/27/19 14:14 Lymph % (Auto) 23.8 % (13.4-35.0) 01/27/19 14:14 [place] % (Auto) 8.1 % (0.0-7.3) H 01/27/19 14:14 Eos % (Auto) 0.5 % (0.0-4.3) 01/27/19 14:14 Baso % (Auto) 0.6 % (0.0-1.8) 01/27/19 14:14 Lymph # 1.5 K/mm3 (1.2-5.4) 01/27/19 14:14 [place] # 0.5 K/mm3 (0.0-0.8) 01/27/19 14:14 Eos # 0.0 K/mm3 (0.0-0.4) 01/27/19 14:14 Baso # 0.0 K/mm3 (0.0-0.1) 01/27/19 14:14 Seg Neutrophils % 67.0 % (40.0-70.0) 01/27/19 14:14 Seg Neutrophils # 4.2 K/mm3 (1.8-7.7) 01/27/19 14:14 PT 13.5 Sec. (12.2-14.9) 01/27/19 14:14 INR 0.97 (0.87-1.13) 01/27/19 14:14 APTT 24.0 Sec. (24.2-36.6) L 01/27/19 14:14 Thrombin Time 16.4 Sec. (15.1-19.6) 01/27/19 14:14 Sodium 143 mmol/L (137-145) 01/27/19 14:14 Potassium 4.0 mmol/L (3.6-5.0) 01/27/19 14:14 Chloride 106.4 mmol/L (98-107) 01/27/19 14:14 Carbon Dioxide 22 mmol/L (22-30) 01/27/19 14:14 Anion Gap 19 mmol/L 01/27/19 14:14 BUN 11 mg/dL (9-20) 01/27/19 14:14 Creatinine 0.9 mg/dL (0.8-1.5) 01/27/19 14:14 Estimated GFR > 60 ml/min 01/27/19 14:14 BUN/Creatinine Ratio 12 % 01/27/19 14:14 Glucose 120 mg/dL (75-100) H 01/27/19 14:14 POC Glucose 81 (70-105) 01/28/19 13:20 Calcium 8.4 mg/dL (8.4-10.2) 01/27/19 14:14 Magnesium 2.10 mg/dL (1.7-2.3) 01/27/19 14:14 Troponin T < 0.010 ng/mL (0.00-0.029) 01/27/19 14:14 Active Medications - Current Medications Current Medications: Generic Name Dose Route Start Last Admin Trade Name Freq PRN Reason Stop Dose Admin Acetaminophen 650 mg 01/27/19 17:08 Tylenol PO Q4H PRN Pain, Mild (1-3) Albuterol 2.5 mg 01/27/19 17:08 Proventil IH Q3H PRN Shortness Of Breath Aspirin 325 mg 01/28/19 10:00 01/28/19 10:21 Aspirin PO Not Given QDAY [facility] Atorvastatin Calcium 40 mg 01/27/19 22:00 01/27/19 22:32 Lipitor PO 40 mg QHS REG Administration Bisacodyl 10 mg 01/27/19 17:08 Dulcolax [place] QDAY PRN Constipation Dextrose 50 ml 01/27/19 17:53 D50w (25gm) Syringe IV PRN PRN Hypoglycemia Folic Acid 1 mg 01/28/19 10:00 01/28/19 10:00 Folvite PO 1 mg QDAY REG Administration Hydralazine HCl 20 mg 01/28/19 08:00 01/28/19 12:00 Apresoline IV 20 mg Q4H REG Administration Insulin Human Lispro 0 unit 01/27/19 22:00 01/28/19 12:00 Humalog SUB-Q Not Given ACHS [facility] Protocol Lorazepam 2 mg 01/27/19 17:19 01/27/19 23:46 Ativan IV 2 mg Q1H PRN Administration CIWA-Ar 8-15 Magnesium Hydroxide 30 ml 01/27/19 17:08 Milk Of Magnesia PO Q4H PRN Constipation Metoclopramide HCl 10 mg 01/27/19 17:08 Reglan PO Q6H PRN Nausea And Vomiting Ondansetron HCl 4 mg 01/27/19 17:08 Zofran IV Q8H PRN Nausea And Vomiting Promethazine HCl 25 mg 01/27/19 17:08 Phenergan [place] Q6H PRN Nausea And Vomiting Sodium Chloride 10 ml 01/27/19 17:08 Sodium Chloride Flush Syringe 10 Ml IV PRN PRN LINE FLUSH Thiamine HCl 100 mg 01/28/19 10:00 01/28/19 10:00 Vitamin B-1 PO 100 mg QDAY REG Administration
--- NOTE | 2019-01-28 16:02 | Progress Note ---
Subjective Date of service: 01/28/19 Interval history: all labs are basically WNL's reviewed notes plan EEG tuesday Objective - Vital Sign Vital Signs - 12hr 01/28/19 01/28/19 01/28/19 04:30 04:31 05:00 Temperature Pulse Rate 78 Pulse Rate [ 74 From Monitor] Pulse Rate [ 72 Left Arm] Respiratory 22 24 Rate Respiratory 26 H Rate [Left Arm] Blood Pressure 146/86 Blood Pressure 144/66 [Left Arm] O2 Sat by Pulse 97 96 Oximetry O2 Sat by Pulse 97 Oximetry [Left Arm] 01/28/19 01/28/19 01/28/19 05:01 05:31 06:00 Temperature Pulse Rate 95 H 82 Pulse Rate [ From Monitor] Pulse Rate [ 70 Left Arm] Respiratory 17 17 Rate Respiratory 24 Rate [Left Arm] Blood Pressure 144/66 144/66 Blood Pressure 166/86 [Left Arm] O2 Sat by Pulse 92 98 Oximetry O2 Sat by Pulse 96 Oximetry [Left Arm] 01/28/19 01/28/19 01/28/19 06:01 06:31 07:00 Temperature Pulse Rate 84 71 Pulse Rate [ 85 From Monitor] Pulse Rate [ 84 Left Arm] Respiratory 19 25 H 23 Rate Respiratory 24 Rate [Left Arm] Blood Pressure 166/86 166/86 Blood Pressure 166/86 [Left Arm] O2 Sat by Pulse 93 97 98 Oximetry O2 Sat by Pulse 96 Oximetry [Left Arm] 01/28/19 01/28/19 01/28/19 07:01 07:30 08:00 Temperature 98.2 F Pulse Rate 71 86 77 Pulse Rate [ From Monitor] Pulse Rate [ 81 Left Arm] Respiratory 18 13 15 Rate Respiratory 17 Rate [Left Arm] Blood Pressure 166/86 162/85 Blood Pressure 162/85 [Left Arm] O2 Sat by Pulse 92 98 98 Oximetry O2 Sat by Pulse 97 Oximetry [Left Arm] 01/28/19 01/28/19 01/28/19 08:30 09:00 09:30 Temperature Pulse Rate 86 79 Pulse Rate [ 82 From Monitor] Pulse Rate [ 88 Left Arm] Respiratory 21 19 Rate Respiratory 18 Rate [Left Arm] Blood Pressure 162/85 162/85 165/89 Blood Pressure 165/89 [Left Arm] O2 Sat by Pulse 99 97 99 Oximetry O2 Sat by Pulse 98 Oximetry [Left Arm] 01/28/19 01/28/1919 10:00 10:03 10:16 Temperature Pulse Rate 74 72 Pulse Rate [ From Monitor] Pulse Rate [ 86 Left Arm] Respiratory 21 14 Rate Respiratory 17 Rate [Left Arm] Blood Pressure 165/89 182/96 Blood Pressure 166/86 [Left Arm] O2 Sat by Pulse 99 99 97 Oximetry O2 Sat by Pulse 97 Oximetry [Left Arm] 01/28/19 01/28/19 01/28/19 10:30 10:46 11:00 Temperature Pulse Rate 71 84 87 Pulse Rate [ 79 From Monitor] Pulse Rate [ 85 Left Arm] Respiratory 18 20 25 H Rate Respiratory 18 Rate [Left Arm] Blood Pressure 196/94 187/102 196/94 Blood Pressure 170/71 [Left Arm] O2 Sat by Pulse 98 98 96 Oximetry O2 Sat by Pulse 97 Oximetry [Left Arm] 01/28/19 01/28/19 01/28/19 11:16 11:30 11:46 Temperature Pulse Rate 76 80 87 Pulse Rate [ From Monitor] Pulse Rate [ Left Arm] Respiratory 18 22 17 Rate Respiratory Rate [Left Arm] Blood Pressure 170/71 187/102 173/66 Blood Pressure [Left Arm] O2 Sat by Pulse 98 97 98 Oximetry O2 Sat by Pulse Oximetry [Left Arm] 01/28/19 01/28/19 01/28/19 12:00 12:16 12:30 Temperature 98.2 F Pulse Rate 94 H 88 101 H Pulse Rate [ From Monitor] Pulse Rate [ 75 Left Arm] Respiratory 23 27 H 15 Rate Respiratory 21 Rate [Left Arm] Blood Pressure 173/66 179/109 179/109 Blood Pressure 173/63 [Left Arm] O2 Sat by Pulse 97 98 97 Oximetry O2 Sat by Pulse 98 Oximetry [Left Arm] 01/28/19 01/28/19 01/28/19 12:46 13:00 13:16 Temperature Pulse Rate 97 H 79 86 Pulse Rate [ 82 From Monitor] Pulse Rate [ 77 Left Arm] Respiratory 16 19 24 Rate Respiratory 24 Rate [Left Arm] Blood Pressure 180/91 179/109 167/90 Blood Pressure 165/90 [Left Arm] O2 Sat by Pulse 99 98 98 Oximetry O2 Sat by Pulse 98 Oximetry [Left Arm] 01/28/19 01/28/19 01/28/19 13:30 13:46 14:00 Temperature Pulse Rate 86 76 97 H Pulse Rate [ From Monitor] Pulse Rate [ 80 Left Arm] Respiratory 15 15 15 Rate Respiratory 29 H Rate [Left Arm] Blood Pressure 167/90 167/90 167/90 Blood Pressure 170/80 [Left Arm] O2 Sat by Pulse 99 97 99 Oximetry O2 Sat by Pulse 95 Oximetry [Left Arm] 01/28/19 01/28/19 01/28/19 14:16 14:30 14:45 Temperature Pulse Rate 90 86 76 Pulse Rate [ From Monitor] Pulse Rate [ Left Arm] Respiratory 11 L 25 H 16 Rate Respiratory Rate [Left Arm] Blood Pressure 197/103 197/103 146/72 Blood Pressure [Left Arm] O2 Sat by Pulse 98 97 93 Oximetry O2 Sat by Pulse Oximetry [Left Arm] 01/28/19 15:00 Temperature Pulse Rate 72 Pulse Rate [ 79 From Monitor] Pulse Rate [ 88 Left Arm] Respiratory 12 Rate Respiratory 25 H Rate [Left Arm] Blood Pressure 146/72 Blood Pressure 169/82 [Left Arm] O2 Sat by Pulse 98 Oximetry O2 Sat by Pulse 98 Oximetry [Left Arm] - Laboratory Findings CBC and BMP: 01/27/19 14:14 01/27/19 14:14 Abnormal Lab Findings: Abnormal Labs 01/27/19 01/27/19 01/27/19 14:14 14:14 14:14 MCV 95 H MCH 33 H RDW 15.8 H [place] % (Auto) 8.1 H APTT 24.0 L Glucose 120 H
[2019-01-28] MEDS: APRESOLINE PO SCH (21:30)
[2019-01-28] MEDS: NORVASC PO SCH (21:30)
[2019-01-28] MEDS: LOVENOX SUB-Q SCH (21:30)
[2019-01-29] MEDS: APRESOLINE IV PRN (01:23)
[2019-01-29 06:04] LABS: Basophils % (Auto) 0.8 % (0.0-1.8); Eosinophils # (Auto) 0.1 K/mm3 (0.0-0.4); Eosinophils % (Auto) 1.2 % (0.0-4.3); Hematocrit 42.9 % (35.5-45.6); Hemoglobin 14.7 gm/dl (11.8-15.2); Lymphocytes # (Auto) 1.7 K/mm3 (1.2-5.4); Mean Corpuscular HGB Conc 34 % (32-34); Mean Corpuscular Volume 95 fl (84-94); Monocytes # (Auto) 0.7 K/mm3 (0.0-0.8); Monocytes % (Auto) 10.5 % (0.0-7.3); Platelet Count 211 K/mm3 (140-440); Red Blood Count 4.52 M/mm3 (3.65-5.03); Red Cell Distribution Width 15.5 % (13.2-15.2)
[2019-01-29 06:21] LABS: Chol/HDL Ratio 3.55 %; HDL Cholesterol 36 mg/dL (40-59); LDL Cholesterol,Direct 83 mg/dL (50-130)
[2019-01-29] MEDS: APRESOLINE PO SCH ×3 (06:57→22:29)
[2019-01-29 07:56] LABS: BUN/Creatinine Ratio 13; Blood Urea Nitrogen 8 mg/dL (9-20); Calcium 8.8 mg/dL (8.4-10.2); Hemolysis Index 7
--- NOTE | 2019-01-29 08:05 | Progress Note ---
Assessment and Plan Assessment and plan: -- Acute CVA (cerebral vascular accident)s/p TPA Stroke/TPA Protocol Patient feels slightly better, neuro workup is in progress Physical therapy occupational therapy speech therapy, diet as tolerated Aspirin, statin, neurology following -- Right hemiparesis Mild improvement ,PT and OT and rehabilitation -- Hypophosphatemia management with sodium phosphate Follow electrolytes --Alcohol abuse, daily use Monitor for alcohol withdrawal symptoms No agitation or tremulousness on CIWA protocol, thiamine and folic acid vitamins Strongly advised to quit alcohol intake -- HTN (hypertension) accelerated Continue current antihypertensives , when necessary medications -- Obesity; BMI 33.9 Advised diet modification, exercise as tolerated Weight reduction when medically stable -- DVT prophylaxis SCD to BLE while in bed, Lovenox Follow MRI/MRA /echocardiogram Follow PT OT evaluations and recommendations Possible discharge in 1-2 days if stable , home with home health Plan of care reviewed with the patient and his nurse History Interval history: Patient seen and examined this morning in his room Medical records reviewed No overnight events reported by the nursing Patient feels likely better, speech clear back to baseline Right-sided weakness significantly improved. He feels slight weakness Denies headache or dizziness Alert awake oriented 3 Vital signs noted Hospitalist Physical - Constitutional Vitals: Temp Pulse Resp BP Pulse Ox 98.1 F 90 18 159/80 98 01/29/19 04:33 01/29/19 04:33 01/29/19 04:33 01/29/19 04:33 01/29/19 04:33 General appearance: Present: no acute distress, well-nourished, obese, other (speech clear) - EENT Eyes: Present: PERRL, EOM intact - Neck Neck: Present: supple, normal ROM - Respiratory Respiratory effort: normal Respiratory: negative: rales, rhonchi, wheezing - Cardiovascular Rhythm: regular Heart Sounds: Present: S1 & S2 - Extremities Extremities: no ischemia, No edema - Abdominal General gastrointestinal: soft, non-tender, non-distended, normal bowel sounds - Integumentary Integumentary: Present: clear, warm - Psychiatric Psychiatric: appropriate mood/affect, cooperative - Neurologic Neurologic: other (residual right-sided weakness, speech clear) Results - Labs CBC & Chem 7: 01/29/19 05:21 01/29/19 05:21 Labs: Laboratory Last Values WBC 6.6 K/mm3 (4.5-11.0) 01/29/19 05:21 RBC 4.52 M/mm3 (3.65-5.03) 01/29/19 05:21 Hgb 14.7 gm/dl (11.8-15.2) 01/29/19 05:21 Hct 42.9 % (35.5-45.6) 01/29/19 05:21 MCV 95 fl (84-94) H 01/29/19 05:21 MCH 32 pg (28-32) 01/29/19 05:21 MCHC 34 % (32-34) 01/29/19 05:21 RDW 15.5 % (13.2-15.2) H 01/29/19 05:21 Plt Count 211 K/mm3 (140-440) 01/29/19 05:21 Lymph % (Auto) 26.0 % (13.4-35.0) 01/29/19 05:21 [place] % (Auto) 10.5 % (0.0-7.3) H 01/29/19 05:21 Eos % (Auto) 1.2 % (0.0-4.3) 01/29/19 05:21 Baso % (Auto) 0.8 % (0.0-1.8) 01/29/19 05:21 Lymph # 1.7 K/mm3 (1.2-5.4) 01/29/19 05:21 [place] # 0.7 K/mm3 (0.0-0.8) 01/29/19 05:21 Eos # 0.1 K/mm3 (0.0-0.4) 01/29/19 05:21 Baso # 0.0 K/mm3 (0.0-0.1) 01/29/19 05:21 Seg Neutrophils % 61.5 % (40.0-70.0) 01/29/19 05:21 Seg Neutrophils # 4.0 K/mm3 (1.8-7.7) 01/29/19 05:21 PT 13.5 Sec. (12.2-14.9) 01/27/19 14:14 INR 0.97 (0.87-1.13) 01/27/19 14:14 APTT 24.0 Sec. (24.2-36.6) L 01/27/19 14:14 Thrombin Time 16.4 Sec. (15.1-19.6) 01/27/19 14:14 Sodium 135 mmol/L (137-145) L D 01/29/19 05:21 Potassium 3.7 mmol/L (3.6-5.0) 01/29/19 05:21 Chloride 100.9 mmol/L (98-107) 01/29/19 05:21 Carbon Dioxide 23 mmol/L (22-30) 01/29/19 05:21 Anion Gap 15 mmol/L 01/29/19 05:21 BUN 8 mg/dL (9-20) L 01/29/19 05:21 Creatinine 0.6 mg/dL (0.8-1.5) L 01/29/19 05:21 Estimated GFR > 60 ml/min 01/29/19 05:21 BUN/Creatinine Ratio 13 % 01/29/19 05:21 Glucose 100 mg/dL (75-100) 01/29/19 05:21 POC Glucose 78 (70-105) 01/28/19 16:29 Hemoglobin A1c 4.1 % (4-6) 01/29/19 05:21 Calcium 8.8 mg/dL (8.4-10.2) 01/29/19 05:21 Phosphorus 2.20 mg/dL (2.5-4.5) L 01/29/19 05:21 Magnesium 2.10 mg/dL (1.7-2.3) 01/29/19 05:21 Troponin T < 0.010 ng/mL (0.00-0.029) 01/27/19 14:14 Triglycerides 102 mg/dL (2-149) 01/29/19 05:21 Cholesterol 128 mg/dL (50-199) 01/29/19 05:21 LDL Cholesterol Direct 83 mg/dL (50-130) 01/29/19 05:21 HDL Cholesterol 36 mg/dL (40-59) L 01/29/19 05:21 Cholesterol/HDL Ratio 3.55 % 01/29/19 05:21 Active Medications - Current Medications Current Medications: Generic Name Dose Route Start Last Admin Trade Name Freq PRN Reason Stop Dose Admin Acetaminophen 650 mg 01/27/19 17:08 Tylenol PO Q4H PRN Pain, Mild (1-3) Albuterol 2.5 mg 01/27/19 17:08 Proventil IH Q3H PRN Shortness Of Breath Amlodipine Besylate 5 mg 01/28/19 18:00 01/28/19 21:30 Norvasc PO 5 mg QDAY REG Administration Aspirin 325 mg 01/28/19 10:00 01/28/19 10:21 Aspirin PO Not Given QDAY REG Atorvastatin Calcium 40 mg 01/27/19 22:00 01/28/19 21:30 Lipitor PO 40 mg QHS REG Administration Bisacodyl 10 mg 01/27/19 17:08 Dulcolax MO QDAY PRN Constipation Enoxaparin Sodium 40 mg 01/28/19 22:00 01/28/19 21:30 Lovenox SUB-Q 40 mg QDAY@2200 [facility] Administration Folic Acid 1 mg 01/28/19 10:00 01/28/19 10:00 Folvite PO 1 mg QDAY REG Administration Hydralazine HCl 25 mg 01/28/19 22:00 01/29/19 06:57 Apresoline PO 25 mg Q8HR REG Administration Hydralazine HCl 10 mg 01/28/19 17:02 01/29/19 01:23 Apresoline IV 10 mg Q4H PRN Administration HTN SBP>160/90 Sodium Phosphate 30 mmol/ 510 mls @ 125 mls/hr 01/29/19 07:59 Sodium Chloride IV 01/29/19 12:03 ONCE ONE Magnesium Hydroxide 30 ml 01/27/19 17:08 Milk Of Magnesia PO Q4H PRN Constipation Metoclopramide HCl 10 mg 01/27/19 17:08 Reglan PO Q6H PRN Nausea And Vomiting Ondansetron HCl 4 mg 01/27/19 17:08 Zofran IV Q8H PRN Nausea And Vomiting Sodium Chloride 10 ml 01/27/19 17:08 Sodium Chloride Flush Syringe 10 Ml IV PRN PRN LINE FLUSH Thiamine HCl 100 mg 01/28/19 10:00 01/28/19 10:00 Vitamin B-1 PO 100 mg QDAY REG Administration
--- NOTE | 2019-01-29 08:45 | Progress Note ---
Subjective Date of service: 01/29/19 Interval history: await the MRI today stroke scale is zero... prior to stroke the patient was not under medical care and family did witness onset of stroke while he was at [facility] for his sister's work up being in progress Objective - Vital Sign Vital Signs - 12hr 01/28/19 01/28/19 01/29/19 21:31 23:52 04:33 Temperature 98.2 F 98.4 F 98.1 F Pulse Rate 93 H 94 H 90 Respiratory 18 18 18 Rate Blood Pressure 214/92 185/82 159/80 O2 Sat by Pulse 99 98 98 Oximetry - Laboratory Findings CBC and BMP: 01/29/19 05:21 01/29/19 05:21 Abnormal Lab Findings: Abnormal Labs 01/27/19 01/27/19 01/27/19 14:14 14:14 14:14 MCV 95 H MCH 33 H RDW 15.8 H [place] % (Auto) 8.1 H APTT 24.0 L Sodium BUN Creatinine Glucose 120 H Phosphorus HDL Cholesterol 01/29/19 01/29/19 05:21 05:21 MCV 95 H MCH RDW 15.5 H [place] % (Auto) 10.5 H APTT Sodium 135 L D BUN 8 L Creatinine 0.6 L Glucose Phosphorus 2.20 L HDL Cholesterol 36 L
[2019-01-29] MEDS ORDERED: SODIUM PHOSPHATE 30 MMOL in NACL 0.9% 500 ML 500 ML IV ONE (09:30)
[2019-01-29] MEDS: FOLVITE PO SCH (09:57)
[2019-01-29] MEDS: ASPIRIN PO SCH (09:57)
[2019-01-29] MEDS: VITAMIN B-1 PO SCH (09:57)
[2019-01-29] MEDS: NORVASC PO SCH (09:57)
--- NOTE | 2019-01-29 13:37 | Progress Note ---
Assessment and Plan Acute CVA s/p TPA Right hemiparesis Alcohol Abuse HTN Obesity Hypophosphatemia Subjective Date of service: 01/29/19 Interval history: Patient is seen today for: Acute CVA s/p TPA; Right hemiparesis; Alcohol Abuse; HTN; Obesity; Hypophosphatemia Seen and examined at bedside; 24hour events reviewed; nursing and respiratory care staff consulted; no adverse overnight events reported to me; Objective Vital Signs - 12hr 01/29/19 01/29/19 01/29/19 04:33 09:16 12:52 Temperature 98.1 F 98.4 F Pulse Rate 90 96 H 86 Respiratory 18 18 Rate Blood Pressure 159/80 149/67 O2 Sat by Pulse 98 97 98 Oximetry CBC and BMP: 01/29/19 05:21 01/29/19 05:21 ABG, PT/INR, D-dimer: PT/INR, D-dimer PT 13.5 Sec. (12.2-14.9) 01/27/19 14:14 INR 0.97 (0.87-1.13) 01/27/19 14:14 Abnormal lab findings: Abnormal Labs 01/27/19 01/27/19 01/27/19 14:14 14:14 14:14 MCV 95 H MCH 33 H RDW 15.8 H [place] % (Auto) 8.1 H APTT 24.0 L Sodium BUN Creatinine Glucose 120 H Phosphorus HDL Cholesterol 01/29/19 01/29/19 05:21 05:21 MCV 95 H MCH RDW 15.5 H [place] % (Auto) 10.5 H APTT Sodium 135 L D BUN 8 L Creatinine 0.6 L Glucose Phosphorus 2.20 L HDL Cholesterol 36 L
--- NOTE | 2019-01-29 14:38 | Progress Note ---
Assessment and Plan Patient alert, awake. Resting On room air.O2 saturation 98%. Patient has heavy history of smoking. 1/2 pack for 50 years. Counselled to stop smoking. - Patient Problems (1) CVA (cerebral vascular accident) Current Visit: Yes Status: Acute Qualifiers: Precerebral and cerebral artery: middle cerebral artery Laterality of affected vessel: left Plan to address problem: Management as per neurology. (2) Right hemiparesis Current Visit: Yes Status: Acute Plan to address problem: Management as per neurology. (3) Alcohol abuse, daily use Current Visit: Yes Status: Acute Plan to address problem: Management as per primary care. (4) Diabetes Current Visit: Yes Status: Acute Plan to address problem: Management as per primary care. (5) HTN (hypertension) Current Visit: Yes Status: Acute Qualifiers: Hypertension type: essential hypertension Qualified Code(s): I10 - Essential (primary) hypertension (6) Obesity Current Visit: Yes Status: Acute Qualifiers: Body mass index: BMI 39.0-39.9 Plan to address problem: Recommend to loose weight. Consult tool setter for weight reduction diet. (7) Tobacco use Current Visit: Yes Status: Acute Plan to address problem: Counselled to stop smoking. (8) COPD (chronic obstructive pulmonary disease) Current Visit: Yes Status: Acute Plan to address problem: With heavy history of smoking, Possible COPD. Counselled to stop smoking. PFTs as out patient. Subjective Date of service: 01/29/19 Interval history: Patient alert, awake. Resting On room air.O2 saturation 98%. Patient has heavy history of smoking. 1/2 pack for 50 years. Counselled to stop smoking. Objective Vital Signs - 12hr 01/29/19 01/29/19 01/29/19 04:33 09:16 12:52 Temperature 98.1 F 98.4 F Pulse Rate 90 96 H 86 Respiratory 18 18 Rate Blood Pressure 159/80 149/67 O2 Sat by Pulse 98 97 98 Oximetry Constitutional: no acute distress, alert Eyes: non-icteric ENT: oropharynx moist Neck: supple, no lymphadenopathy Ascultation: Bilateral: diminished breath sounds Cardiovascular: regular rate and rhythm Gastrointestinal: normoactive bowel sounds, soft, non-tender Integumentary: normal Extremities: no cyanosis, no edema Neurologic: normal mental status, pupils equal and round, other (Right hemiperesis.) CBC and BMP: 01/29/19 05:21 01/29/19 05:21 ABG, PT/INR, D-dimer: PT/INR, D-dimer PT 13.5 Sec. (12.2-14.9) 01/27/19 14:14 INR 0.97 (0.87-1.13) 01/27/19 14:14 Abnormal lab findings: Abnormal Labs 01/27/19 01/27/19 01/27/19 14:14 14:14 14:14 MCV 95 H MCH 33 H RDW 15.8 H [place] % (Auto) 8.1 H APTT 24.0 L Sodium BUN Creatinine Glucose 120 H Phosphorus HDL Cholesterol 01/29/19 01/29/19 05:21 05:21 MCV 95 H MCH RDW 15.5 H [place] % (Auto) 10.5 H APTT Sodium 135 L D BUN 8 L Creatinine 0.6 L Glucose Phosphorus 2.20 L HDL Cholesterol 36 L
--- NOTE | 2019-01-29 19:28 | Magnetic Resonance Report ---
PROCEDURE: MR MRA/MRV HEAD WO CON TECHNIQUE: 3-D [id number] MRA of the brain with maximum intensity projection images obtained. HISTORY: stroke COMPARISONS: MRI brain also performed today and CT angiogram brain dated January 27, 2019. FINDINGS: Visualization of fine detail is significantly limited by motion artifact. There is the appearance of segments of stenoses of the cavernous and supraclinoid segments of the int ernal carotid arteries bilaterally, degree indeterminate, but possibly high-grade.. There is the appearance of an approximately 5 mm segment of stenosis of the distal M1 segment of the left middle cerebral artery, degree indeterminate. There are possible stenoses, degree indeterminate, of the P1 segment of the left posterior cerebral a rtery and P2 segments of the posterior cerebral arteries bilaterally. There is no evidence of occlusion or aneurysm of the major intracranial arteries. IMPRESSION: 1. Study significantly degraded by motion artifact. 2. Appearance of stenoses of the cavernous and supraclinoid segments of the internal carotid arteries bilaterally, degree indeterminate, but possibly high-grade. 3. Appearance of stenosis M1 segment left middle cerebral artery, degree indeterminate. 4. Possible stenoses, degree indeterminate, posterior cerebral arteries bilaterally. This document is electronically signed by Yolanda Ortega MD., January 29 2019 07:27:05 PM ET
--- NOTE | 2019-01-29 19:51 | Magnetic Resonance Report ---
PROCEDURE: MR BRAIN WO CON TECHNIQUE: T1 and T2-weighted sagittal, axial, coronal and diffusion-weighted images of the brain we re obtained. HISTORY: stroke COMPARISONS: Head CT dated January 27, 2019. FINDINGS: There are areas of diffusion abnormality in the cortex of the left frontal, parietal and occipital lo bes in a somewhat watershed distribution. T2 signal abnormalities in the subcortical and deep white matter of the cerebral hemispheres bilatera lly and within the jennifer are most suggestive of chronic postischemic demyelination/small vessel diseas e. There appears to be a chronic lacunar infarct in the left thalamus. There is no evidence of intracranial hemorrhage nor intracranial mass. The ventricles are normal size. Expected flow void is demonstrated within the major intracranial vessels. The extracranial structures and craniocervical junction are unremarkable in appearance. IMPRESSION: 1. Areas of acute infarct in the cortex of the left frontal, parietal and occipital lobes in a somewh at watershed distribution. The appearance is suggestive of an embolic etiology. 2. White matter changes most suggestive of chronic postischemic demyelination/small vessel disease an d appearance of chronic lacunar infarct left thalamus. This document is electronically signed by Yolanda Ortega MD., January 29 2019 07:49:39 PM ET
--- NOTE | 2019-01-29 19:59 | Event Note ---
Date: 01/29/19 Notified by radiology salesperson [employer] of MRI findings. Report reviewed during daily patient rounds.
[2019-01-29] MEDS: LOVENOX SUB-Q SCH (22:30)
[2019-01-30] MEDS: APRESOLINE PO SCH ×3 (06:28→22:16)
[2019-01-30] MEDS: FOLVITE PO SCH (09:46)
[2019-01-30] MEDS: VITAMIN B-1 PO SCH (09:46)
[2019-01-30] MEDS: ASPIRIN PO SCH (09:46)
[2019-01-30] MEDS: NORVASC PO SCH (09:46)
--- NOTE | 2019-01-30 13:30 | Progress Note ---
Assessment and Plan Patient alert, awake. Resting On room air.O2 saturation 98%. Patient has heavy history of smoking. 1/2 pack for 50 years. Counselled to stop smoking. - Patient Problems (1) CVA (cerebral vascular accident) Current Visit: Yes Status: Acute Qualifiers: Precerebral and cerebral artery: middle cerebral artery Laterality of affected vessel: left Plan to address problem: Management as per neurology. (2) Right hemiparesis Current Visit: Yes Status: Acute Plan to address problem: Management as per neurology. (3) Alcohol abuse, daily use Current Visit: Yes Status: Acute Plan to address problem: Management as per primary care. (4) Diabetes Current Visit: Yes Status: Acute Plan to address problem: Management as per primary care. (5) HTN (hypertension) Current Visit: Yes Status: Acute Qualifiers: Hypertension type: essential hypertension Qualified Code(s): I10 - Essential (primary) hypertension (6) Obesity Current Visit: Yes Status: Acute Qualifiers: Body mass index: BMI 39.0-39.9 Plan to address problem: Recommend to loose weight. Consult director enterprise systems for weight reduction diet. (7) Tobacco use Current Visit: Yes Status: Acute Plan to address problem: Counselled to stop smoking. (8) COPD (chronic obstructive pulmonary disease) Current Visit: Yes Status: Acute Plan to address problem: With heavy history of smoking, Possible COPD. Counselled to stop smoking. PFTs as out patient. Subjective Date of service: 01/30/19 Interval history: Patient alert, awake. Resting On room air.O2 saturation 98%. Patient has heavy history of smoking. 1/2 pack for 50 years. Counselled to stop smoking. Objective Vital Signs - 12hr 01/30/19 01/30/19 01/30/19 04:50 08:46 09:46 Temperature 98.3 F 98.0 F Pulse Rate 90 83 83 Respiratory 18 16 Rate Blood Pressure 169/83 155/84 155/84 O2 Sat by Pulse 97 98 Oximetry Constitutional: no acute distress, alert Eyes: non-icteric ENT: oropharynx moist Neck: supple, no lymphadenopathy Ascultation: Bilateral: diminished breath sounds Cardiovascular: regular rate and rhythm Gastrointestinal: normoactive bowel sounds, soft, non-tender Integumentary: normal Extremities: no cyanosis, no edema Neurologic: normal mental status, pupils equal and round, other (Right hemiperesis.) CBC and BMP: 01/29/19 05:21 01/29/19 05:21 ABG, PT/INR, D-dimer: PT/INR, D-dimer PT 13.5 Sec. (12.2-14.9) 01/27/19 14:14 INR 0.97 (0.87-1.13) 01/27/19 14:14 Abnormal lab findings: Abnormal Labs 01/27/19 01/27/19 01/27/19 14:14 14:14 14:14 MCV 95 H MCH 33 H RDW 15.8 H [place] % (Auto) 8.1 H APTT 24.0 L Sodium BUN Creatinine Glucose 120 H POC Glucose Phosphorus HDL Cholesterol 01/29/19 01/29/19 01/29/19 05:21 05:21 11:19 MCV 95 H MCH RDW 15.5 H [place] % (Auto) 10.5 H APTT Sodium 135 L D BUN 8 L Creatinine 0.6 L Glucose POC Glucose 126 H Phosphorus 2.20 L HDL Cholesterol 36 L 01/29/19 15:56 MCV MCH RDW [place] % (Auto) APTT Sodium BUN Creatinine Glucose POC Glucose 107 H Phosphorus HDL Cholesterol
--- NOTE | 2019-01-30 15:45 | Progress Note ---
Subjective Date of service: 01/30/19 Interval history: MRI shows embolic disease of the left frontal lobe this fits with the description of the stroke suspect this is embolic and source could be carotid atherosclerotic disease... do not feel heart was the source based on review of the ECHO Objective - Vital Sign Vital Signs - 12hr 01/30/19 01/30/19 01/30/19 04:50 08:46 09:46 Temperature 98.3 F 98.0 F Pulse Rate 90 83 83 Respiratory 18 16 Rate Blood Pressure 169/83 155/84 155/84 O2 Sat by Pulse 97 98 Oximetry - Laboratory Findings CBC and BMP: 01/29/19 05:21 01/29/19 05:21 Abnormal Lab Findings: Abnormal Labs 01/27/19 01/27/19 01/27/19 14:14 14:14 14:14 MCV 95 H MCH 33 H RDW 15.8 H [place] % (Auto) 8.1 H APTT 24.0 L Sodium BUN Creatinine Glucose 120 H POC Glucose Phosphorus HDL Cholesterol 01/29/19 01/29/19 01/29/19 05:21 05:21 11:19 MCV 95 H MCH RDW 15.5 H [place] % (Auto) 10.5 H APTT Sodium 135 L D BUN 8 L Creatinine 0.6 L Glucose POC Glucose 126 H Phosphorus 2.20 L HDL Cholesterol 36 L 01/29/19 15:56 MCV MCH RDW [place] % (Auto) APTT Sodium BUN Creatinine Glucose POC Glucose 107 H Phosphorus HDL Cholesterol
--- NOTE | 2019-01-30 17:50 | Progress Note ---
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 Consult cardiology for CHRISTIANO, patient may need anticoagulation -- Right hemiparesis Mild improvement ,PT and OT and rehabilitation -- Hypophosphatemia management with sodium phosphate Follow electrolytes --Alcohol abuse, daily use Monitor for alcohol withdrawal symptoms No agitation or tremulousness on CIWA protocol, thiamine and folic acid vitamins Strongly advised to quit alcohol intake -- HTN (hypertension) accelerated Continue current antihypertensives , when necessary medications -- Obesity; BMI 33.9 Advised diet modification, exercise as tolerated Weight reduction when medically stable -- DVT prophylaxis SCD to BLE while in bed, Lovenox Follow MRI/MRA /echocardiogram Follow PT OT evaluations and recommendations Possible discharge in 1-2 days if stable , home with home health Plan of care reviewed with the patient and his nurse History Interval history: Patient feels beter, no new complaints. vital sgns reviewed Hospitalist Physical - Constitutional Vitals: Temp Pulse Resp BP Pulse Ox 98.0 F 83 16 155/84 98 01/30/19 08:46 01/30/19 09:46 01/30/19 08:46 01/30/19 09:46 01/30/19 08:46 General appearance: Present: no acute distress, well-nourished, obese, other (speech clear) - EENT Eyes: Present: PERRL, EOM intact - Neck Neck: Present: supple, normal ROM - Respiratory Respiratory effort: normal Respiratory: bilateral: diminished, negative: rales, rhonchi, wheezing - Cardiovascular Rhythm: regular Heart Sounds: Present: S1 & S2 - Extremities Extremities: no ischemia, pulses intact - Abdominal General gastrointestinal: soft, non-tender, non-distended, normal bowel sounds - Integumentary Integumentary: Present: clear, warm - Psychiatric Psychiatric: appropriate mood/affect, cooperative - Neurologic Neurologic: CNII-XII intact, moves all extremities Results - Labs CBC & Chem 7: 01/29/19 05:21 01/29/19 05:21 Labs: Laboratory Last Values WBC 6.6 K/mm3 (4.5-11.0) 01/29/19 05:21 RBC 4.52 M/mm3 (3.65-5.03) 01/29/19 05:21 Hgb 14.7 gm/dl (11.8-15.2) 01/29/19 05:21 Hct 42.9 % (35.5-45.6) 01/29/19 05:21 MCV 95 fl (84-94) H 01/29/19 05:21 MCH 32 pg (28-32) 01/29/19 05:21 MCHC 34 % (32-34) 01/29/19 05:21 RDW 15.5 % (13.2-15.2) H 01/29/19 05:21 Plt Count 211 K/mm3 (140-440) 01/29/19 05:21 Lymph % (Auto) 26.0 % (13.4-35.0) 01/29/19 05:21 [place] % (Auto) 10.5 % (0.0-7.3) H 01/29/19 05:21 Eos % (Auto) 1.2 % (0.0-4.3) 01/29/19 05:21 Baso % (Auto) 0.8 % (0.0-1.8) 01/29/19 05:21 Lymph # 1.7 K/mm3 (1.2-5.4) 01/29/19 05:21 [place] # 0.7 K/mm3 (0.0-0.8) 01/29/19 05:21 Eos # 0.1 K/mm3 (0.0-0.4) 01/29/19 05:21 Baso # 0.0 K/mm3 (0.0-0.1) 01/29/19 05:21 Seg Neutrophils % 61.5 % (40.0-70.0) 01/29/19 05:21 Seg Neutrophils # 4.0 K/mm3 (1.8-7.7) 01/29/19 05:21 PT 13.5 Sec. (12.2-14.9) 01/27/19 14:14 INR 0.97 (0.87-1.13) 01/27/19 14:14 APTT 24.0 Sec. (24.2-36.6) L 01/27/19 14:14 Thrombin Time 16.4 Sec. (15.1-19.6) 01/27/19 14:14 Sodium 135 mmol/L (137-145) L D 01/29/19 05:21 Potassium 3.7 mmol/L (3.6-5.0) 01/29/19 05:21 Chloride 100.9 mmol/L (98-107) 01/29/19 05:21 Carbon Dioxide 23 mmol/L (22-30) 01/29/19 05:21 Anion Gap 15 mmol/L 01/29/19 05:21 BUN 8 mg/dL (9-20) L 01/29/19 05:21 Creatinine 0.6 mg/dL (0.8-1.5) L 01/29/19 05:21 Estimated GFR > 60 ml/min 01/29/19 05:21 BUN/Creatinine Ratio 13 % 01/29/19 05:21 Glucose 100 mg/dL (75-100) 01/29/19 05:21 POC Glucose 107 (70-105) H 01/29/19 15:56 Hemoglobin A1c 4.1 % (4-6) 01/29/19 05:21 Calcium 8.8 mg/dL (8.4-10.2) 01/29/19 05:21 Phosphorus 2.20 mg/dL (2.5-4.5) L 01/29/19 05:21 Magnesium 2.10 mg/dL (1.7-2.3) 01/29/19 05:21 Troponin T < 0.010 ng/mL (0.00-0.029) 01/27/19 14:14 Triglycerides 102 mg/dL (2-149) 01/29/19 05:21 Cholesterol 128 mg/dL (50-199) 01/29/19 05:21 LDL Cholesterol Direct 83 mg/dL (50-130) 01/29/19 05:21 HDL Cholesterol 36 mg/dL (40-59) L 01/29/19 05:21 Cholesterol/HDL Ratio 3.55 % 01/29/19 05:21 Active Medications - Current Medications Current Medications: Generic Name Dose Route Start Last Admin Trade Name Freq PRN Reason Stop Dose Admin Acetaminophen 650 mg 01/27/19 17:08 Tylenol PO Q4H PRN Pain, Mild (1-3) Albuterol 2.5 mg 01/27/19 17:08 Proventil IH Q3H PRN Shortness Of Breath Amlodipine Besylate 5 mg 01/28/19 18:00 01/30/19 09:46 Norvasc PO 5 mg QDAY REG Administration Aspirin 325 mg 01/28/19 10:00 01/30/19 09:46 Aspirin PO 325 mg QDAY REG Administration Atorvastatin Calcium 40 mg 01/27/19 22:00 01/29/19 22:29 Lipitor PO 40 mg QHS REG Administration Bisacodyl 10 mg 01/27/19 17:08 Dulcolax CA QDAY PRN Constipation Enoxaparin Sodium 40 mg 01/28/19 22:00 01/29/19 22:30 Lovenox SUB-Q 40 mg QDAY@2200 REG Administration Folic Acid 1 mg 01/28/19 10:00 01/30/19 09:46 Folvite PO 1 mg QDAY REG Administration Hydralazine HCl 25 mg 01/28/19 22:00 01/30/19 16:41 Apresoline PO 25 mg Q8HR REG Administration Hydralazine HCl 10 mg 01/28/19 17:02 01/29/19 01:23 Apresoline IV 10 mg Q4H PRN Administration HTN SBP>160/90 Magnesium Hydroxide 30 ml 01/27/19 17:08 Milk Of Magnesia PO Q4H PRN Constipation Metoclopramide HCl 10 mg 01/27/19 17:08 Reglan PO Q6H PRN Nausea And Vomiting Ondansetron HCl 4 mg 01/27/19 17:08 Zofran IV Q8H PRN Nausea And Vomiting Sodium Chloride 10 ml 01/27/19 17:08 Sodium Chloride Flush Syringe 10 Ml IV PRN PRN LINE FLUSH Thiamine HCl 100 mg 01/28/19 10:00 01/30/19 09:46 Vitamin B-1 PO 100 mg QDAY REG Administration
--- NOTE | 2019-01-30 18:00 | Progress Note ---
Assessment and Plan Patient alert, awake. Resting On room air.O2 saturation 98%. Patient has heavy history of smoking. 1/2 pack for 50 years. Counselled to stop smoking. - Patient Problems (1) CVA (cerebral vascular accident) Current Visit: Yes Status: Acute Qualifiers: Precerebral and cerebral artery: middle cerebral artery Laterality of affected vessel: left Plan to address problem: Management as per neurology. (2) Right hemiparesis Current Visit: Yes Status: Acute Plan to address problem: Management as per neurology. (3) Alcohol abuse, daily use Current Visit: Yes Status: Acute Plan to address problem: Management as per primary care. (4) Diabetes Current Visit: Yes Status: Acute Plan to address problem: Management as per primary care. (5) HTN (hypertension) Current Visit: Yes Status: Acute Qualifiers: Hypertension type: essential hypertension Qualified Code(s): I10 - Essential (primary) hypertension Plan to address problem: Management as per primary care. (6) Obesity Current Visit: Yes Status: Acute Qualifiers: Body mass index: BMI 39.0-39.9 Plan to address problem: Recommend to loose weight. Consult manager audio for weight reduction diet. (7) Tobacco use Current Visit: Yes Status: Acute Plan to address problem: Counselled to stop smoking. (8) COPD (chronic obstructive pulmonary disease) Current Visit: Yes Status: Acute Subjective Date of service: 01/30/19 Interval history: Patient alert, awake. Resting On room air.O2 saturation 98%. Patient has heavy history of smoking. 1/2 pack for 50 years. Counselled to stop smoking. Objective Vital Signs - 12hr 01/30/19 01/30/19 08:46 09:46 Temperature 98.0 F Pulse Rate 83 83 Respiratory 16 Rate Blood Pressure 155/84 155/84 O2 Sat by Pulse 98 Oximetry Constitutional: no acute distress, alert Eyes: non-icteric ENT: oropharynx moist Neck: supple, no lymphadenopathy Ascultation: Bilateral: diminished breath sounds Cardiovascular: regular rate and rhythm Gastrointestinal: normoactive bowel sounds, soft, non-tender Integumentary: normal Extremities: no cyanosis, no edema Neurologic: normal mental status, pupils equal and round, other (Right hemiperesis.) CBC and BMP: 01/29/19 05:21 01/29/19 05:21 ABG, PT/INR, D-dimer: PT/INR, D-dimer PT 13.5 Sec. (12.2-14.9) 01/27/19 14:14 INR 0.97 (0.87-1.13) 01/27/19 14:14 Abnormal lab findings: Abnormal Labs 01/27/19 01/27/19 01/27/19 14:14 14:14 14:14 MCV 95 H MCH 33 H RDW 15.8 H [place] % (Auto) 8.1 H APTT 24.0 L Sodium BUN Creatinine Glucose 120 H POC Glucose Phosphorus HDL Cholesterol 01/29/19 01/29/19 01/29/19 05:21 05:21 11:19 MCV 95 H MCH RDW 15.5 H [place] % (Auto) 10.5 H APTT Sodium 135 L D BUN 8 L Creatinine 0.6 L Glucose POC Glucose 126 H Phosphorus 2.20 L HDL Cholesterol 36 L 01/29/19 15:56 MCV MCH RDW [place] % (Auto) APTT Sodium BUN Creatinine Glucose POC Glucose 107 H Phosphorus HDL Cholesterol
[2019-01-30] MEDS: LOVENOX SUB-Q SCH (22:16)
[2019-01-31] MEDS: APRESOLINE PO SCH ×2 (05:42→16:00)
[2019-01-31] MEDS: APRESOLINE IV PRN (05:43)
[2019-01-31] MEDS ORDERED: NACL 0.9% 500 ML 500 ML IV SCH (09:00)
[2019-01-31] MEDS ORDERED: HURRICAINE ONE 20% TOPICAL SPRAY MM NR (09:00)
[2019-01-31] MEDS ORDERED: SUBLIMAZE IV NR (09:00)
[2019-01-31] MEDS ORDERED: VERSED IV NR (09:00)
[2019-01-31] MEDS ORDERED: HURRICAINE ONE 20% TOPICAL SPRAY MM (09:13)
[2019-01-31] MEDS ORDERED: VERSED IV ONE (09:13)
[2019-01-31] MEDS ORDERED: SUBLIMAZE ONE (09:13)
[2019-01-31] MEDS ORDERED: NACL 0.9% 500 ML 500 ML ONE (09:13)
--- NOTE | 2019-01-31 11:04 | XRay Report ---
CHEST XRAY, 2 VIEWS: History: History of smoking. Findings: There is mild cardiomegaly. Pulmonary vessels are within normal limits. The lungs are clear and fully expanded. No infiltrate, pleural effusion or pneumothorax. No advanced COPD changes are identified. Normal thoracic cage. IMPRESSION: Cardiomegaly.
--- NOTE | 2019-01-31 11:16 | Progress Note ---
Assessment and Plan Patient alert, awake. Resting On room air.O2 saturation 98%. Patient has heavy history of smoking. 1/2 pack for 50 years. Counselled to stop smoking. - Patient Problems (1) CVA (cerebral vascular accident) Current Visit: Yes Status: Acute Qualifiers: Precerebral and cerebral artery: middle cerebral artery Laterality of affected vessel: left Plan to address problem: Management as per neurology. (2) Right hemiparesis Current Visit: Yes Status: Acute Plan to address problem: Management as per neurology. (3) Alcohol abuse, daily use Current Visit: Yes Status: Acute Plan to address problem: Management as per primary care. (4) Diabetes Current Visit: Yes Status: Acute Plan to address problem: Management as per primary care. (5) HTN (hypertension) Current Visit: Yes Status: Acute Qualifiers: Hypertension type: essential hypertension Qualified Code(s): I10 - Essential (primary) hypertension Plan to address problem: Management as per primary care. (6) Obesity Current Visit: Yes Status: Acute Qualifiers: Body mass index: BMI 39.0-39.9 Plan to address problem: Recommend to loose weight. 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 (7) Tobacco use Current Visit: Yes Status: Acute Plan to address problem: Counselled to stop smoking. (8) COPD (chronic obstructive pulmonary disease) Current Visit: Yes Status: Acute Plan to address problem: With heavy history of smoking, Possible COPD. Counselled to stop smoking. PFTs as out patient. Subjective Date of service: 01/31/19 Interval history: Patient alert, awake. Resting On room air.O2 saturation 98%. Patient has heavy history of smoking. 1/2 pack for 50 years. Counselled to stop smoking. Objective Vital Signs - 12hr 01/30/19 01/31/19 01/31/19 23:21 03:59 05:42 Temperature 98.2 F 98.4 F Temperature [ Post-Procedure] Temperature [ Pre-Procedure] Pulse Rate 89 84 83 Pulse Rate [ Intra-Procedure ] Pulse Rate [ Post-Procedure] Pulse Rate [Pre -Procedure] Respiratory 16 16 Rate Respiratory Rate [Intra- Procedure] Respiratory Rate [Post- Procedure] Respiratory Rate [Pre- Procedure] Blood Pressure 153/72 170/84 170/84 Blood Pressure [Intra- Procedure] Blood Pressure [Post-Procedure ] Blood Pressure [Pre-Procedure] O2 Sat by Pulse 97 97 Oximetry O2 Sat by Pulse Oximetry [ Intra-Procedure ] O2 Sat by Pulse Oximetry [Post -Procedure] O2 Sat by Pulse Oximetry [Pre- Procedure] 01/31/19 01/31/19 01/31/19 05:43 09:25 09:46 Temperature Temperature [ Post-Procedure] Temperature [ 97.9 F Pre-Procedure] Pulse Rate Pulse Rate [ 84 Intra-Procedure ] Pulse Rate [ Post-Procedure] Pulse Rate [Pre 82 -Procedure] Respiratory Rate Respiratory 23 Rate [Intra- Procedure] Respiratory Rate [Post- Procedure] Respiratory 19 Rate [Pre- Procedure] Blood Pressure 170/84 Blood Pressure 162/83 [Intra- Procedure] Blood Pressure [Post-Procedure ] Blood Pressure 182/94 [Pre-Procedure] O2 Sat by Pulse Oximetry O2 Sat by Pulse 96 Oximetry [ Intra-Procedure ] O2 Sat by Pulse Oximetry [Post -Procedure] O2 Sat by Pulse 98 Oximetry [Pre- Procedure] 01/31/19 01/31/19 01/31/19 09:50 09:55 10:10 Temperature Temperature [ 98.6 F Post-Procedure] Temperature [ Pre-Procedure] Pulse Rate Pulse Rate [ 88 Intra-Procedure ] Pulse Rate [ 92 H 84 Post-Procedure] Pulse Rate [Pre -Procedure] Respiratory Rate Respiratory 23 Rate [Intra- Procedure] Respiratory 20 22 Rate [Post- Procedure] Respiratory Rate [Pre- Procedure] Blood Pressure Blood Pressure 183/79 [Intra- Procedure] Blood Pressure 184/88 143/94 [Post-Procedure ] Blood Pressure [Pre-Procedure] O2 Sat by Pulse Oximetry O2 Sat by Pulse 96 Oximetry [ Intra-Procedure ] O2 Sat by Pulse 97 97 Oximetry [Post -Procedure] O2 Sat by Pulse Oximetry [Pre- Procedure] 01/31/19 10:25 Temperature Temperature [ Post-Procedure] Temperature [ Pre-Procedure] Pulse Rate Pulse Rate [ Intra-Procedure ] Pulse Rate [ 84 Post-Procedure] Pulse Rate [Pre -Procedure] Respiratory Rate Respiratory Rate [Intra- Procedure] Respiratory 20 Rate [Post- Procedure] Respiratory Rate [Pre- Procedure] Blood Pressure Blood Pressure [Intra- Procedure] Blood Pressure 157/83 [Post-Procedure ] Blood Pressure [Pre-Procedure] O2 Sat by Pulse Oximetry O2 Sat by Pulse Oximetry [ Intra-Procedure ] O2 Sat by Pulse 97 Oximetry [Post -Procedure] O2 Sat by Pulse Oximetry [Pre- Procedure] Constitutional: no acute distress, alert Eyes: non-icteric ENT: oropharynx moist Neck: supple, no lymphadenopathy Ascultation: Bilateral: diminished breath sounds Cardiovascular: regular rate and rhythm Gastrointestinal: normoactive bowel sounds, soft, non-tender Integumentary: normal Extremities: no cyanosis, no edema Neurologic: normal mental status, pupils equal and round, other (Right hemiperesis.) CBC and BMP: 01/29/19 05:21 01/29/19 05:21 ABG, PT/INR, D-dimer: PT/INR, D-dimer PT 13.5 Sec. (12.2-14.9) 01/27/19 14:14 INR 0.97 (0.87-1.13) 01/27/19 14:14 Abnormal lab findings: Abnormal Labs 01/27/19 01/27/19 01/27/19 14:14 14:14 14:14 MCV 95 H MCH 33 H RDW 15.8 H [place] % (Auto) 8.1 H APTT 24.0 L Sodium BUN Creatinine Glucose 120 H POC Glucose Phosphorus HDL Cholesterol 01/29/19 01/29/19 01/29/19 05:21 05:21 11:19 MCV 95 H MCH RDW 15.5 H [place] % (Auto) 10.5 H APTT Sodium 135 L D BUN 8 L Creatinine 0.6 L Glucose POC Glucose 126 H Phosphorus 2.20 L HDL Cholesterol 36 L 01/29/19 15:56 MCV MCH RDW [place] % (Auto) APTT Sodium BUN Creatinine Glucose POC Glucose 107 H Phosphorus HDL Cholesterol Chest x-ray: report reviewed (Reported cardiomegaly), image reviewed
[2019-01-31] MEDS: VITAMIN B-1 PO SCH (12:11)
[2019-01-31] MEDS: FOLVITE PO SCH (12:11)
[2019-01-31] MEDS: ASPIRIN PO SCH (12:11)
[2019-01-31] MEDS: NORVASC PO SCH (12:11)
--- NOTE | 2019-01-31 14:00 | Progress Note ---
Subjective Date of service: 01/31/19 Interval history: see my prior note about area of ischemia left frontal lobe likely due to embolus based on complaince issues not recommending [employer] CLASS MATT WITH OTHER FACTORS MENTIONED AT ADMISSION THIS IS TOO DANGEROUS Objective - Vital Sign Vital Signs - 12hr 01/31/19 01/31/19 01/31/19 03:59 05:42 05:43 Temperature 98.4 F Temperature [ Post-Procedure] Temperature [ Pre-Procedure] Pulse Rate 84 83 Pulse Rate [ Intra-Procedure ] Pulse Rate [ Post-Procedure] Pulse Rate [Pre -Procedure] Respiratory 16 Rate Respiratory Rate [Intra- Procedure] Respiratory Rate [Post- Procedure] Respiratory Rate [Pre- Procedure] Blood Pressure 170/84 170/84 170/84 Blood Pressure [Intra- Procedure] Blood Pressure [Post-Procedure ] Blood Pressure [Pre-Procedure] O2 Sat by Pulse 97 Oximetry O2 Sat by Pulse Oximetry [ Intra-Procedure ] O2 Sat by Pulse Oximetry [Post -Procedure] O2 Sat by Pulse Oximetry [Pre- Procedure] 01/31/19 01/31/19 01/31/19 09:25 09:46 09:50 Temperature Temperature [ Post-Procedure] Temperature [ 97.9 F Pre-Procedure] Pulse Rate Pulse Rate [ 84 88 Intra-Procedure ] Pulse Rate [ Post-Procedure] Pulse Rate [Pre 82 -Procedure] Respiratory Rate Respiratory 23 23 Rate [Intra- Procedure] Respiratory Rate [Post- Procedure] Respiratory 19 Rate [Pre- Procedure] Blood Pressure Blood Pressure 162/83 183/79 [Intra- Procedure] Blood Pressure [Post-Procedure ] Blood Pressure 182/94 [Pre-Procedure] O2 Sat by Pulse Oximetry O2 Sat by Pulse 96 96 Oximetry [ Intra-Procedure ] O2 Sat by Pulse Oximetry [Post -Procedure] O2 Sat by Pulse 98 Oximetry [Pre- Procedure] 01/31/19 01/31/19 01/31/19 09:55 10:00 10:10 Temperature Temperature [ 98.6 F Post-Procedure] Temperature [ Pre-Procedure] Pulse Rate Pulse Rate [ Intra-Procedure ] Pulse Rate [ 92 H 84 Post-Procedure] Pulse Rate [Pre -Procedure] Respiratory 18 Rate Respiratory Rate [Intra- Procedure] Respiratory 20 22 Rate [Post- Procedure] Respiratory Rate [Pre- Procedure] Blood Pressure Blood Pressure [Intra- Procedure] Blood Pressure 184/88 143/94 [Post-Procedure ] Blood Pressure [Pre-Procedure] O2 Sat by Pulse Oximetry O2 Sat by Pulse Oximetry [ Intra-Procedure ] O2 Sat by Pulse 97 97 Oximetry [Post -Procedure] O2 Sat by Pulse Oximetry [Pre- Procedure] 01/31/19 01/31/19 10:25 13:24 Temperature 98.1 F Temperature [ Post-Procedure] Temperature [ Pre-Procedure] Pulse Rate 73 Pulse Rate [ Intra-Procedure ] Pulse Rate [ 84 Post-Procedure] Pulse Rate [Pre -Procedure] Respiratory 16 Rate Respiratory Rate [Intra- Procedure] Respiratory 20 Rate [Post- Procedure] Respiratory Rate [Pre- Procedure] Blood Pressure 147/81 Blood Pressure [Intra- Procedure] Blood Pressure 157/83 [Post-Procedure ] Blood Pressure [Pre-Procedure] O2 Sat by Pulse 99 Oximetry O2 Sat by Pulse Oximetry [ Intra-Procedure ] O2 Sat by Pulse 97 Oximetry [Post -Procedure] O2 Sat by Pulse Oximetry [Pre- Procedure] - Laboratory Findings CBC and BMP: 01/29/19 05:21 01/29/19 05:21 Abnormal Lab Findings: Abnormal Labs 01/27/19 01/27/19 01/27/19 14:14 14:14 14:14 MCV 95 H MCH 33 H RDW 15.8 H [place] % (Auto) 8.1 H APTT 24.0 L Sodium BUN Creatinine Glucose 120 H POC Glucose Phosphorus HDL Cholesterol 01/29/19 01/29/19 01/29/19 05:21 05:21 11:19 MCV 95 H MCH RDW 15.5 H [place] % (Auto) 10.5 H APTT Sodium 135 L D BUN 8 L Creatinine 0.6 L Glucose POC Glucose 126 H Phosphorus 2.20 L HDL Cholesterol 36 L 01/29/19 15:56 MCV MCH RDW [place] % (Auto) APTT Sodium BUN Creatinine Glucose POC Glucose 107 H Phosphorus HDL Cholesterol
--- NOTE | 2019-01-31 15:11 | Discharge Summary ---
Providers - Providers Date of Admission: 01/27/19 17:08 Date of discharge: 01/31/19 Attending physician: REJI SALVADOR 01/27/19 17:08 Occupational Therapy Evaluate and Treat [CONS] Routine Comment: Reason For Exam: Neuro deficits Physical Therapy Evaluation and Treat [CONS] Routine Comment: Reason For Exam: Neuro deficits 01/27/19 17:11 Consult to Physician [CONS] Routine Comment: Consulting Provider: KARLOS GALEANO Physician Instructions: Reason For Exam: CVA Consult to Physician [CONS] Routine Comment: A/S NOTIFIED 1719 Consulting Provider: ROCIO NAIR Physician Instructions: Reason For Exam: cva 01/27/19 17:12 Speech Therapy Evaluation and Treat [CONS] Routine Reason For Exam: weakness Primary care physician: BENCH EXAMINER Hospitalization Reason for admission: Rt arm,lef weakness/facial weakness and slurred speech Condition: Stable Pertinent studies: CT head CTA neck CTA head Carotid dopp;er ECHO MRI brain MRA brain Hospital course: Patient was admitted through ER with sudden Rt sided weakness ,slurred speech. Patient was in the window priod and recived TPA,stabilised in ICU and and transferred to the floor, received PT/OT and speech therapy symptoms sinificantly mproved,had extensive neuro w./u. Evaluated by neurologist, meds optimised Today patient comfortal,hemodynamically stable for discharege Discharge Diagnosis: -- Acute CVA (cerebral vascular accident)s/p TPA Stroke/TPA Protocol Patient feels slightly better, embolic CVA on MRI Consult cardiology for CHRISTIANO, patient may need anticoagulation -- Right hemiparesis Mild improvement ,PT and OT and rehabilitation -- Hypophosphatemia management with sodium phosphate Follow electrolytes --Alcohol abuse, daily use Monitor for alcohol withdrawal symptoms No agitation or tremulousness on CIWA protocol, thiamine and folic acid vitamins Strongly advised to quit alcohol intake -- HTN (hypertension) accelerated Continue current antihypertensives , when necessary medications -- Obesity; BMI 33.9 Advised diet modification, exercise as tolerated Weight reduction when medically stable -- DVT prophylaxis SCD to BLE while in bed, Lovenox Disposition: TO HOME OR SELFCARE Time spent for discharge: 32 min Core Measure Documentation - Palliative Care Palliative Care/ Comfort Measures: Not Applicable - Core Measures Any of the following diagnoses?: stroke - Stroke Discharge Requirements Statin for LDL = or >70 mg/dl on DC: Yes Anticoag for atrial fib/atrial flutter: Not Applicable (no afib/flutter) Antithrombotic for ischemic stroke: Yes Exam - Constitutional Vitals: Temp Pulse Resp BP Pulse Ox 98.1 F 73 16 147/81 99 01/31/19 13:24 01/31/19 13:24 01/31/19 13:24 01/31/19 13:24 01/31/19 13:24 General appearance: Present: no acute distress, well-nourished - EENT Eyes: Present: PERRL, EOM intact - Neck Neck: Present: supple, normal ROM - Respiratory Respiratory effort: normal Respiratory: bilateral: diminished, negative: rales, rhonchi, wheezing - Cardiovascular Rhythm: regular Heart Sounds: Present: S1 & S2 - Extremities Extremities: no ischemia, No edema - Abdominal General gastrointestinal: Present: soft, non-tender, non-distended, normal bowel sounds - Integumentary Integumentary: Present: clear, warm - Musculoskeletal Musculoskeletal: other (mild weakness right upper extremity) - Psychiatric Psychiatric: appropriate mood/affect, cooperative - Neurologic Neurologic: moves all extremities, other (mild weakness right upper extremity) Plan Activity: advance as tolerated, fall precautions Diet: other (cardiac diet) Special Instructions: physical therapy Additional Instructions: Advised to follow [place] PMD and neurologist in 1 week. Advised smoking cessation. Advised weight reduction when medically stable Follow up with: PRIMARY CARE, [Primary Care Provider] - 7 Days Prescriptions: hydrALAZINE [Apresoline TAB] 25 mg PO Q8HR #90 tablet Aspirin EC [Aspirin Enteric Coated TAB] 81 mg PO QDAY #30 tablet. Folic Acid [Folvite] 1 mg PO QDAY #30 tablet AtorvaSTATin [Lipitor] 40 mg PO QHS #30 tablet amLODIPine [Norvasc] 5 mg PO QDAY #30 tablet Clopidogrel [Plavix] 75 mg PO QDAY #30 tablet Thiamine [Vitamin B-1] 100 mg PO QDAY #30 tablet
[2019-01-31 16:15] VITALS: BP 153/77
== END 2019-01-31 16:33 | disposition home or self-care (01) | DRG 62 ==
LOC: ED 14:01 → CC1 17:08 → 4A 01-28 20:00
PROVIDERS: ADMIT Internal Medicine; ATTEND Internal Medicine
DX: I63.9 Cerebral infarction, unspecified (principal); G81.91 Hemiplegia, unspecified affecting right dominant side; F10.10 Alcohol abuse, uncomplicated; E66.9 Obesity, unspecified; J44.9 Chronic obstructive pulmonary disease, unspecified; E83.39 Other disorders of phosphorus metabolism; R47.81 Slurred speech; R29.810 Facial weakness; E03.9 Hypothyroidism, unspecified; N18.2 Chronic kidney disease, stage 2 (mild); I12.9 Hypertensive chronic kidney disease with stage 1 through stage 4 chronic kidney disease, or unspecified chronic kidney disease; E11.22 Type 2 diabetes mellitus with diabetic chronic kidney disease; R47.01 Aphasia; R47.1 Dysarthria and anarthria; Z71.6 Tobacco abuse counseling; Z68.33 Body mass index [BMI] 33.0-33.9, adult; Z71.3 Dietary counseling and surveillance; Z71.41 Alcohol abuse counseling and surveillance of alcoholic; Z82.49 Family history of ischemic heart disease and other diseases of the circulatory system; Z83.3 Family history of diabetes mellitus; Z79.82 Long term (current) use of aspirin; Z79.899 Other long term (current) drug therapy; Z88.0 Allergy status to penicillin; Z88.1 Allergy status to other antibiotic agents
CPT/HCPCS: 36415; 70450; 70496; 70498; 70544; 70551; 71046; 80048; 80061; 82962; 83036; 83735; 84100; 84484; 85025; 85610; 85670; 85730; 93005; 93010; 93306; 93312; 93320; 93325; 93880; G0378; A9270-GY; J0360; J1650; J2060; J2250; J2997; J3010; J7030; J7040; Q9967